=== PATIENT | female | born 1955 | race Caucasian/White ===

== ENCOUNTER → 2017-03-07 | Outpatient (CLI) | payer BC ==
--- NOTE | 2017-03-08 09:35 | MM ---
Reason for exam: screening (asymptomatic). Last mammogram was performed 1 year and 7 months ago. History: Patient is postmenopausal. Took hormonal contraceptives for 2 years. Physical Findings: A clinical breast exam by your physician is recommended on an annual basis and results should be correlated with mammographic findings. MG Screening Mammo w CAD Bilateral CC and MLO view(s) were taken. Prior study comparison: August 20, 2015, bilateral MG screening mammo w CAD. June 27, 2013, bilateral digital screening mammo w/CAD. The breast tissue is heterogeneously dense. This may lower the sensitivity of mammography. Finding: There are typically benign dystrophic, round calcifications in both breasts. Asymmetric breast tissue in the right posterior upper outer quadrant is stable. There is no discrete abnormality. ASSESSMENT: Benign, BI-RAD 2 RECOMMENDATION: Routine screening mammogram of both breasts in 1 year.
== END | disposition home or self-care (01) ==
LOC: RADMAMWWP 07:52
PROVIDERS: ATTEND Family Medicine
DX: Z12.31 Encounter for screening mammogram for malignant neoplasm of breast (principal)

== ENCOUNTER → 2018-03-08 | Outpatient (CLI) | payer BC ==
--- NOTE | 2018-03-08 14:06 | MM ---
Reason for exam: screening (asymptomatic). Last mammogram was performed 1 year ago. History: Patient is postmenopausal. Took hormonal contraceptives for 2 years. Physical Findings: A clinical breast exam by your physician is recommended on an annual basis and results should be correlated with mammographic findings. MG Screening Mammo w CAD Bilateral CC and MLO view(s) were taken. Prior study comparison: March 07, 2017, bilateral MG screening mammo w CAD. August 20, 2015, bilateral MG screening mammo w CAD. The breast tissue is heterogeneously dense. This may lower the sensitivity of mammography. There is benign appearing round calcifications bilaterally. There is no discrete abnormality. ASSESSMENT: Benign, BI-RAD 2 RECOMMENDATION: Routine screening mammogram of both breasts in 1 year.
== END | disposition home or self-care (01) ==
LOC: RADMAMWWP 08:44
PROVIDERS: ATTEND Family Medicine
DX: Z12.31 Encounter for screening mammogram for malignant neoplasm of breast (principal)
CPT/HCPCS: 77067

== ENCOUNTER → 2019-03-12 | Outpatient (CLI) | payer MEDICARE ==
--- NOTE | 2019-03-12 13:26 | BD ---
EXAMINATION TYPE: Axial Bone Density DATE OF EXAM: 03/12/2019 COMPARISON: 2012 CLINICAL HISTORY: Height: 62.5 Weight: 122.5 FRAX RISK QUESTIONS: Alcohol (3 or more units per day): no Family History (Parent hip fracture): no Glucocorticoids (More than 3mos): no (Ex: prednisone, prednisolone, methylprednisolone, dexamethasone, and hydrocortisone). History of Fracture in Adulthood: no Secondary Osteoporosis: 1. Type 1 Diabetes: no 2. Hyperthyroidism: no 3. Menopause before 45: no 4. Malnutrition: no 5. Chronic liver disease: no Rheumatoid Arthritis: no Current Tobacco Use: yes RISK FACTORS HISTORY OF: Family History of Osteoporosis: not to knowledge of patient Active: yes Diet low in dairy products/other sources of calcium: at least one serving a day Postmenopausal woman: yes Take estrogen and/or progesterone medications: not now How long: hormonal contraceptives about 2 years Lost more than 2 inches in height since high school: no Frequent falls: no Poor Health: no Hyperparathyroidism: no Adrenal Insufficiency: no MEDICATIONS: Thyroid Medications: no Osteoporosis Medications: no Additional Medications: multivitamin, blood pressure med Additional History: EXAM MEASUREMENTS: Bone mineral densitometry was performed using the [employer] System. Bone mineral density as measured about the Lumbar spine is: ----- L1-L4(G/cm2): 1.329 T Score Values are as follows: ----- L2: 1.5 ----- L3: 0.6 ----- L4: 2.2 ----- L1-L4: 1.2 Bone mineral density has: Decreased -6.2% since study of: 06/27/2013 Bone mineral density about the R hip (g/cm2): 0.862 Bone mineral density about the L hip (g/cm2): 0.908 T Score values are as follows: -----R Neck: -1.3 -----L Neck: -0.9 -----R Total: -1.2 -----L Total: -0.9 Bone mineral density has: Decreased -6.9% since study of: 06/27/2013 IMPRESSION: Osteopenia right hip. NOTE: T-SCORE=SD OF THE YOUNG ADULT MEAN.
--- NOTE | 2019-03-13 08:08 | MM ---
Reason for exam: screening (asymptomatic). Last mammogram was performed 1 year ago. History: Patient is postmenopausal. Took hormonal contraceptives for 2 years. Physical Findings: A clinical breast exam by your physician is recommended on an annual basis and results should be correlated with mammographic findings. MG 3D Screening Mammo W/Cad Bilateral CC and MLO view(s) were taken. Prior study comparison: March 08, 2018, bilateral MG screening mammo w CAD. March 07, 2017, bilateral MG screening mammo w CAD. The breast tissue is heterogeneously dense. This may lower the sensitivity of mammography. There is no discrete abnormality. No significant changes when compared with prior studies. ASSESSMENT: Benign, BI-RAD 2 RECOMMENDATION: Routine screening mammogram of both breasts in 1 year.
== END | disposition home or self-care (01) ==
LOC: RADMAMWWP 08:47
PROVIDERS: ATTEND Family Medicine
DX: Z12.31 Encounter for screening mammogram for malignant neoplasm of breast (principal); M85.851 Other specified disorders of bone density and structure, right thigh; Z78.0 Asymptomatic menopausal state
CPT/HCPCS: 77063; 77067; 77080

== ENCOUNTER → 2019-12-13 | Outpatient (CLI) | payer MEDICARE ==
[~2019-12-13] MED LIST: SODIUM CHLORIDE 0.9% 500 ML 500 ML in EMPTY BAG 1 BAG IV PRN
[2019-12-13 10:54] VITALS: BP 155/82; PULSE 81; RESP 16; TEMP 97.6
[2019-12-13 11:18] LABS: Basophils # (A) 0.1 k/uL (0-0.2); Basophils % (A) 1 %; Eosinophils # (A) 0.2 k/uL (0-0.7); Eosinophils % (A) 2 %; Hypochromasia Slight; Lymphocytes # (A) 1.1 k/uL (1.0-4.8); Lymphocytes % (A) 10 %; MCH 28.5 pg (25.0-35.0); MCHC 31.1 g/dL (31.0-37.0); Monocytes # (A) 0.3 k/uL (0-1.0); Monocytes % (A) 3 %; Neutrophils # (A) 9.5 k/uL (1.3-7.7); Neutrophils % (A) 84 %; RDW 14.4 % (11.5-15.5); WBC 11.3 k/uL (3.8-10.6)
[2019-12-13 11:27] LABS: ALT 14 U/L (4-34); AST 29 U/L (14-36); African American GFR (CKD) >90 (>60 ml/min/1.73 sqM); Alkaline Phosphatase 155 U/L (38-126); Anion Gap 10 mmol/L; Blood Urea Nitrogen 3 mg/dL (7-17); Calcium 8.4 mg/dL (8.4-10.2); Carbon Dioxide 26 mmol/L (22-30); Chloride 99 mmol/L (98-107); Glucose 156 mg/dL (74-99); MCV 91.6 fL (80.0-100.0); Magnesium 1.6 mg/dL (1.6-2.3); Non-African American GFR(CKD) >90 (>60 ml/min/1.73 sqM); Platelet Count 518 k/uL (150-450); Potassium 3.8 mmol/L (3.5-5.1); Sodium 135 mmol/L (137-145); Total Bilirubin 0.3 mg/dL (0.2-1.3); Total Protein 5.7 g/dL (6.3-8.2)
== END | disposition home or self-care (01) ==
LOC: PROCWHC3 10:32
DX: C25.9 Malignant neoplasm of pancreas, unspecified (principal)
CPT/HCPCS: 80053; 83735; 85025; 36591; J1642

== ENCOUNTER → 2020-03-22 | Outpatient (CLI) | payer MEDICARE ==
--- NOTE | 2020-03-24 06:31 | PE ---
EXAMINATION TYPE: PET CT fusion skull to thigh DATE OF EXAM: 03/22/2020 COMPARISON: Outside CT abdomen and pelvis September 24, 2019. HISTORY: Pancreatic cancer progress study. Originally diagnosed in September, completed chemotherapy treatment January 14, 2020. TECHNIQUE: Following the intravenous administration of 10.16 mCi of F-18 FDG, whole body images are performed from the skull base to the midthigh. Images are reviewed on the computer in the coronal, a xial, and sagittal planes. Reconstructed rotating images are created on independent workstation and reviewed on the computer. A noncontrast CT is performed in conjunction with the PET scan. SCAN: Subsequent Scan FINDINGS: SKULL BASE AND NECK: No areas of abnormal hypermetabolic uptake. CHEST, MEDIASTINUM, AND HILAR REGION: Background mild underlying emphysematous change. No areas of ab normal hypermetabolic uptake. ABDOMEN AND PELVIS: Interval placement of metallic internal biliary stent with new pneumobilia. Inter marian improvement in degree of biliary and pancreatic ductal dilatation. Persistent abnormal soft tissu e medially or deep to the stent with hypermetabolic uptake near axial image 141 through 147, difficul t to accurately measure due to isointensity relative to adjacent pancreatic tissue, likely measuring 2 to 2.5 cm in both AP and transverse dimensions. Max SUV is at this level is 3.71 on axial image 146 . Normal excretion is present. No additional areas of suspicious hypermetabolic uptake. OSSEOUS STRUCTURES: No areas of suspicious hypermetabolic uptake. OTHER CT: There is right internal jugular Mediport catheter terminating near the cavoatrial junction. Mild to moderate right greater than left carotid bulb vascular calcification. Ascending aortic aneurysm up to 4.0 cm axial image 85. Coronary artery calcification is present. There is 2.6 cm simple appearing thin-walled cyst medially left kidney assessment 140 incidentally no claire. There is ventral wall hernia containing fat and fluid above the umbilicus axial image 148. There is small fat-containing periumbilical hernia axial image 161. Sigmoid colonic diverticulosis. Scatte red pelvic phleboliths. IMPRESSION: Persistent active neoplasm at level of head/uncinate process. No new metastatic disease i s evident. New Metallic internal biliary stent is patent with improved ductal distention.
== END | disposition home or self-care (01) ==
LOC: RADPETMAIN 08:09
PROVIDERS: ATTEND Internal Medicine Hematology & Oncology
DX: C25.8 Malignant neoplasm of overlapping sites of pancreas (principal)
CPT/HCPCS: 78815; A9552

== ENCOUNTER → 2020-06-04 | Outpatient (CLI) | payer MEDICARE ==
[2020-06-04 11:59] LABS: African American GFR (CKD) >90 (>60 ml/min/1.73 sqM); Blood Urea Nitrogen 15 mg/dL (7-17); Non-African American GFR(CKD) >90 (>60 ml/min/1.73 sqM)
--- NOTE | 2020-06-04 13:06 | CT ---
EXAMINATION TYPE: CT ChestAbdPelvis w con DATE OF EXAM: 06/04/2020 COMPARISON: Prior PET/CT March 22, [address] abdomen and pelvis study September 24, 2019 HISTORY: Pancreatic cancer originally diagnosed September 25, 2019 completed chemotherapy treatment Ju 2019. CT DLP: 949 mGycm. Automated Exposure Control for Dose Reduction was Utilized. CONTRAST: CT scan of the thorax, abdomen and pelvis is performed with oral water and with IV Contrast, patient injected with 100 ml mL of Isovue 370. FINDINGS: LUNGS: Background mild to moderate underlying emphysematous change. Focal mild/moderate medial right mid to lower lung linear scarring and/or atelectasis with mild bibasilar linear scarring and/or atele ctasis. No concerning nodules or masses. No suspicious focal consolidation. No pleural effusion or pn eumothorax seen bilaterally. MEDIASTINUM: There are no new greater than 1 cm hilar or mediastinal lymph nodes. Stable prominent bu t subcentimeter pericarinal lymph node on image 21 No cardiomegaly or pericardial effusion is seen. Some ectasia of the ascending aorta up to 3.6 cm in diameter axial image 26 is redemonstrated. OTHER: Right internal jugular Mediport catheter terminating in SVC is redemonstrated. LIVER/GB: Persistent pneumobilia with patent metallic internal biliary stent. PANCREAS: More prominent diffuse pancreatic ductal dilatation with abrupt termination in the pancreat ic head axial image 66 series 3 due to likely enlarging mass or neoplasm along the anterior left mike in of the metallic stent measuring roughly 3.3 x 3.0 cm on axial image 68 though difficult to distinc tly measure mass versus normal pancreatic tissue, is almost certainly larger from recent PET/CT area of mild hypermetabolic uptake. Craniocaudal dimension of 3.5 cm noted coronal image 81. SPLEEN: No significant abnormality is seen. ADRENALS: No significant abnormality is seen. KIDNEYS: Incidental Simple appearing 3.0 cm thin-walled cyst medially midpole of the left kidney axia l image 67 series 3. Mildly distended bladder. Anteverted uterus. Partially duplicated right-sided co llecting system redemonstrated. BOWEL: Few scattered sigmoid colonic diverticula. GENITAL ORGANS: No gross abnormality seen. LYMPH NODES: No greater than 1cm abdominal or pelvic lymph nodes are appreciated. OSSEOUS STRUCTURES: Sacralized L5 segment. Slight grade 1 retrolisthesis L4 on L5. Mild to moderate d isc space narrowing right L4-L5 level. OTHER: Persistent ventral wall hernia containing fat and tiny mesenteric vessels near the umbilicus. IMPRESSION: Interval progression in size of pancreatic head mass or neoplasm from PET/CT with new green creatic ductal dilatation. Internal metallic biliary stent remains patent without new biliary ductal dilatation. No definitive new metastatic disease.
== END | disposition home or self-care (01) ==
LOC: RADCTMAIN 10:51
PROVIDERS: ATTEND Internal Medicine Hematology & Oncology
DX: K86.89 Other specified diseases of pancreas (principal); Z96.89 Presence of other specified functional implants; C25.9 Malignant neoplasm of pancreas, unspecified
CPT/HCPCS: 82565; 84520; 71260; 74177; 36415; Q9967

== ENCOUNTER → 2020-10-23 | Outpatient (CLI) | payer MEDICARE ==
--- NOTE | 2020-10-24 09:47 | ECHOF ---
Referral Reason:Z01.818 MEASUREMENTS -------- HEIGHT: 157.5 cm WEIGHT: 47.6 kg BP: IVSd: 1.2 cm (0.6 - 1.1) LVIDd: 3.8 cm (3.9 - 5.3) LVPWd: 1.2 cm (0.6 - 1.1) IVSs: 1.3 cm LVIDs: 2.5 cm LVPWs: 1.5 cm LAESV Index (A-L): 18.72 ml/m Ao Diam: 3.2 cm (2.0 - 3.7) AV Cusp: 1.9 cm (1.5 - 2.6) LA Diam: 2.3 cm (2.7 - 3.8) MV EXCURSION: 11.800 mm (> 18.000) MV EF SLOPE: 66 mm/s (70 - 150) EPSS: 1.6 cm MV E Nehemias: 0.44 m/s MV DecT: 206 ms MV A Nehemias: 0.69 m/s MV E/A Ratio: 0.64 RAP: 5.00 mmHg RVSP: 13.29 mmHg FINDINGS -------- This was a technically good study. The left ventricular size is normal. There is borderline concentric left ventricular hypertrophy. Overall left ventricular systolic function is low-normal with, an EF between 50 - 55 %. The diasto lic filling pattern is normal for the age of the patient 6.77. The right ventricle is normal in size. The left atrial size is normal. Normal LA size by volume 22+/-6 ml/m2. The right atrial size is normal. Interatrial and interventricular septum intact. The aortic valve is trileaflet and appears structurally normal. The mitral valve is normal. The mitral valve leaflets are mildly thickened. There is trace mitral regurgitation. The tricuspid valve appears structurally normal. Trace tricuspid regurgitation present. Right mulu tricular systolic pressure is normal at < 35 mmHg. There is no pulmonic regurgitation present. The aortic root size is normal. Normal inferior vena cava with normal inspiratory collapse consistent with estimated right atrial pre ssure of 5 mmHg. There is no pericardial effusion. CONCLUSIONS -------- 1. The left ventricular size is normal. 2. There is borderline concentric left ventricular hypertrophy. 3. Overall left ventricular systolic function is low-normal with, an EF between 50 - 55 %. 4. The diastolic filling pattern is normal for the age of the patient 6.77 5. The mitral valve leaflets are mildly thickened. 6. There is trace mitral regurgitation. 7. Trace tricuspid regurgitation present. 8. There is no pericardial effusion. WINE MASTER: Marcy Collado RDCS
== END | disposition home or self-care (01) ==
LOC: RADECHMAIN 12:03
PROVIDERS: ATTEND Internal Medicine Hematology & Oncology
DX: Z01.818 Encounter for other preprocedural examination (principal); I08.1 Rheumatic disorders of both mitral and tricuspid valves
CPT/HCPCS: 93306

== ENCOUNTER → 2021-02-05 | Outpatient (CLI) | payer MEDICARE ==
[~2021-02-05] MED LIST changes: +CALCIUM GLUCONATE 1 GM in SODIUM CHLORIDE 0.9% 100 ML IVPB ONE; +MAGNESIUM SULFATE-D5W PMX 1 GM in DEXTROSE/WATER 1 100ML.BAG IVPB NR
[2021-02-05 12:34] VITALS: BP 147/91; PULSE 72; RESP 16; TEMP 97.9
[2021-02-05 12:49] LABS: Basophils % (A) 0 %; Eosinophils % (A) 0 %; HCT 28.2 % (34.0-46.0); Lymphocytes # (A) 0.5 k/uL (1.0-4.8); Lymphocytes % (A) 10 %; MCH 31.7 pg (25.0-35.0); MCHC 35.2 g/dL (31.0-37.0); Mean Platelet Volume 6.9; Monocytes # (A) 0.3 k/uL (0-1.0); Monocytes % (A) 6 %; Neutrophils # (A) 4.3 k/uL (1.3-7.7); Neutrophils % (A) 83 %; Platelet Count 153 k/uL (150-450); RBC 3.14 m/uL (3.80-5.40); RDW 15.1 % (11.5-15.5); WBC 5.2 k/uL (3.8-10.6)
== END ==
LOC: PROCWHC3 12:11
PROVIDERS: ATTEND Internal Medicine Hematology & Oncology
DX: D64.81 Anemia due to antineoplastic chemotherapy (principal); E83.51 Hypocalcemia
CPT/HCPCS: 83735; 85025; 96365; 96366; 96367; 36591; J3475; J1642; J0610

== ENCOUNTER → 2021-04-20 | Outpatient (CLI) | payer MEDICARE ==
[~2021-04-20] MED LIST changes: -CALCIUM GLUCONATE 1 GM in SODIUM CHLORIDE 0.9% 100 ML IVPB ONE; -MAGNESIUM SULFATE-D5W PMX 1 GM in DEXTROSE/WATER 1 100ML.BAG IVPB NR
[2021-04-20 14:43] VITALS: BP 159/83; PULSE 77; RESP 16; TEMP 98.2
[2021-04-20] MEDS: MAGNESIUM SULFATE-D5W PMX 1 GM in DEXTROSE/WATER 1 100ML.BAG IVPB SCH ×2 (14:43→16:05)
== END ==
LOC: PROCWHC3 14:13
PROVIDERS: ATTEND Internal Medicine Hematology & Oncology
DX: E83.42 Hypomagnesemia (principal)
CPT/HCPCS: 96366; 96365; J3475; J1642

== ENCOUNTER → 2021-05-01 | Outpatient (CLI) | payer MEDICARE ==
[2021-05-01 09:44] VITALS: RESP 16
[2021-05-01 13:37] VITALS: BP 137/71; PULSE 77; TEMP 98.2
== END ==
LOC: PROCWHC3 09:29
PROVIDERS: ATTEND Internal Medicine Hematology & Oncology
DX: D64.81 Anemia due to antineoplastic chemotherapy (principal); T45.1X5A Adverse effect of antineoplastic and immunosuppressive drugs, initial encounter
CPT/HCPCS: 86900; 86901; 86850; 86920; P9016

== ENCOUNTER → 2021-08-03 | Outpatient (CLI) | payer MEDICARE ==
--- NOTE | 2021-08-03 16:21 | US ---
EXAMINATION TYPE: US venous doppler duplex LE LT DATE OF EXAM: 08/03/2021 4:03 PM COMPARISON: NONE CLINICAL HISTORY: 65-year-old female M79.662,R22.42 PAIN AND SWELLING IN LT LOWER LIMB. Patient state s having left lower extremity swelling at the ankle. SIDE PERFORMED: Left TECHNIQUE: The lower extremity deep venous system is examined utilizing real time linear array sonog alicia with graded compression, doppler sonography and color-flow sonography. FINDINGS: VESSELS IMAGED: Common Femoral Vein Deep Femoral Vein Greater Saphenous Vein * Femoral Vein Popliteal Vein Small Saphenous Vein * Proximal Calf Veins (* superficial vessels) Left Leg: There appears to be superficial thrombus formation in the greater saphenous vein. IMPRESSION: 1. No evidence for DVT within the left lower extremity imaged from the groin to the upper calf. 2. However, the exam is positive for SVT involving the greater saphenous vein.
== END | disposition home or self-care (01) ==
LOC: RADUSWWP 15:13
PROVIDERS: ATTEND Internal Medicine Hematology & Oncology
DX: I82.812 Embolism and thrombosis of superficial veins of left lower extremity (principal)

== ENCOUNTER → 2021-09-01 | Outpatient (CLI) | payer MEDICARE ==
--- NOTE | 2021-09-01 13:49 | US ---
EXAMINATION TYPE: US venous doppler duplex LE LT DATE OF EXAM: 09/01/2021 1:11 PM COMPARISON: US August 03, 2021 CLINICAL HISTORY: R22.42 Swelling of left lower limb. Pt states swelling left leg, has known GSV thro mbus, pt currently on blood thinners SIDE PERFORMED: Left TECHNIQUE: The lower extremity deep venous system is examined utilizing real time linear array sonog alicia with graded compression, doppler sonography and color-flow sonography. VESSELS IMAGED: Common Femoral Vein Deep Femoral Vein Greater Saphenous Vein * Femoral Vein Popliteal Vein Small Saphenous Vein * Proximal Calf Veins (* superficial vessels) Left Leg: Negative for DVT, thrombus within left GSV near CFV junction, similar in appearance to pre vious exam Grayscale, color doppler, spectral doppler imaging performed of the deep veins of the left lower extr emity. IMPRESSION: Persistent occlusive thrombus in the greater saphenous vein extending near junction of t he common femoral vein, no significant change from prior study.
== END | disposition home or self-care (01) ==
LOC: RADUSWWP 12:35
PROVIDERS: ATTEND Internal Medicine Hematology & Oncology
DX: I82.812 Embolism and thrombosis of superficial veins of left lower extremity (principal)

== ENCOUNTER → 2021-09-01 | Outpatient (CLI) | payer MEDICARE ==
[2021-09-01 18:40] LABS: African American GFR (CKD) 40.4 (60.0-200.0); Albumin 3.6 g/dL (3.8-4.9); Albumin/Globulin Ratio 1.98 (1.60-3.17); Anion Gap 10.5 mmol/L (10.00-18.00); BUN/Creat Ratio 13.27 Ratio (12.00-20.00); Blood Urea Nitrogen 20.3 mg/dL (9.0-27.0); Calcium 8.6 mg/dL (8.7-10.3); Carbon Dioxide 22.5 mmol/L (20.0-27.5); Globulin 1.8 g/dL (1.6-3.3); Magnesium 1.6 mg/dL (1.5-2.4); Non-African American GFR(CKD) 34.8 (60.0-200.0); Potassium 4.1 mmol/L (3.5-5.5); Total Bilirubin 0.4 mg/dL (0.30-1.20); Total Protein 5.3 g/dL (6.2-8.2)
== END | disposition home or self-care (01) ==
LOC: LABWHC1 12:39
PROVIDERS: ATTEND Internal Medicine
DX: N17.9 Acute kidney failure, unspecified (principal)
CPT/HCPCS: 36415; 80053; 83735

== ENCOUNTER 2021-09-04 12:51 | Day surgery (SDC) | payer MEDICARE ==
[2021-09-01 10:50] VITALS: BMI 15.3
[~2021-09-04 12:51] MED LIST changes: +LACTATED RINGERS 1,000 ML IV SCH; -SODIUM CHLORIDE 0.9% 500 ML 500 ML in EMPTY BAG 1 BAG IV PRN
[2021-09-04 13:44] VITALS: RESP 16; TEMP 98.9
[2021-09-04] MEDS ORDERED: LIDOCAINE 1% INJ 10MG/ML (20 ML MDV) ONE (13:48)
[2021-09-04] MEDS ORDERED: PROPOFOL 10 MG/ML 20 ML VIAL IV ONE (13:48)
--- NOTE | 2021-09-04 14:17 | P.PCN ---
Date of Procedure: 09/04/21 Procedure(s) Performed: Brief history: Patient is a pleasant 65-year-old white female scheduled for an elective upper endoscopy as well as colonoscopy as a part of evaluation of in deficiency anemia. Patient was diagnosed with pancreatic adenocarcinoma 2 years ago status post chemotherapy followed by Whipple surgery. Since has been undergoing chemotherapy the last one was 2 months ago. She has been having severe anemia requiring 8 units of PRBC transfusion the last 3 months. She denies any rectal bleeding or melena. However she does complain of intermittent dark colored stools. She has been on a Eliquis for history of DVT. This has been on hold for the last 2 days. Procedure performed: Esophagogastroduodenoscopy with biopsy Colonoscopy Preoperative diagnosis: Iron deficiency anemia Anesthesia: MAC Procedure: After informed consent was obtained from the patient was brought into the endoscopy unit and IV sedation was administered by anesthesia under continuous monitoring. Initially upper endoscopy was done. The Olympus GF 160 video endoscope was inserted inserted into the mouth and esophagus intubated without any difficulty and was gradually advanced into the stomach . There was evidence of distal antrectomy with Trinh-en-Y anastomosis. The was advanced through the afferent and efferent loops. It was advanced at least to 60 cm into the efferent loop and the mucosa appeared normal. Biopsies were done from the jejunum to rule out celiac disease. normal. l. The scope was then withdrawn into the stomach adequately insufflated with air and upon careful examination the body, cardia and fundus appeared normal. The scope was then withdrawn into the esophagus. The GE junction was located at 40 cm to the incisors. It appeared regular with no erythema erosions or ulcerations. Rest of the esophagus appeared normal. Patient tolerated the procedure well. At this time the patient continued to remain sedation. Initial digital rectal examination was normal. Olympus CF 160 video colonoscope was then inserted into the rectum and gradually advanced to the cecum with difficulty due to severe difficulty. Careful examination was performed as the scope was gradually being withdrawn. The prep was excellent. The cecum, ascending colon, transverse colon, descending colon, sigmoid colon and rectum appeared normal. Moderate sigmoid diverticulosis seen. Retroflexion was performed in the rectum and no lesions were noted. Patient tolerated the procedure well. Impression: 1. Upper endoscopy revealed evidence of distal antrectomy/Whipple surgery. No evidence of peptic ulcer disease or angiectasia 2. Colonoscopy revealed moderate sigmoid diverticulosis and small internal hemorrhoids but no evidence of angiectasia, colitis or colorectal neoplasia Recommendations: Findings of this examination were discussed with the patient as well as[ her family. She was advised to follow with the biopsy results. Resume liquids today. Follow up in office in a month.
[2021-09-04 14:49] VITALS: BP 147/71; PULSE 77
== END 2021-09-04 15:29 | disposition home or self-care (01) ==
LOC: ORWHC2ENDO 12:51
PROVIDERS: ATTEND Internal Medicine Gastroenterology
DX: D50.9 Iron deficiency anemia, unspecified (principal)
CPT/HCPCS: 45378; 43239; J2001; J2704; 88305

== ENCOUNTER → 2021-09-17 | Outpatient (CLI) | payer MEDICARE ==
--- NOTE | 2021-09-17 13:55 | US ---
EXAMINATION TYPE: US venous doppler duplex LE LT DATE OF EXAM: 09/17/2021 12:46 PM COMPARISON: 09/01/2021 CLINICAL HISTORY: 65-year-old female I82.812 Embolism and thrombosis of superficial vein. Follow-up, history of GSV thrombus. Patient on blood thinner SIDE PERFORMED: left TECHNIQUE: The lower extremity deep venous system is examined utilizing real time linear array sonog alicia with graded compression, doppler sonography and color-flow sonography. FINDINGS: VESSELS IMAGED: Common Femoral Vein Deep Femoral Vein Greater Saphenous Vein * Femoral Vein Popliteal Vein Small Saphenous Vein * Proximal Calf Veins (* superficial vessels) Left Leg: No evidence of DVT. Thrombus within left GSV near CFV junction as on prior exam IMPRESSION: 1. Exam positive for thrombus within the greater saphenous vein that extends to the junction with the common femoral vein as seen previously. 2. Otherwise, no evidence for DVT within the left lower extremity imaged from the groin to the upper calf.
== END | disposition home or self-care (01) ==
LOC: RADUSWWP 12:17
PROVIDERS: ATTEND Internal Medicine Hematology & Oncology
DX: I82.812 Embolism and thrombosis of superficial veins of left lower extremity (principal)

== ENCOUNTER → 2021-09-17 | Outpatient (CLI) | payer MEDICARE ==
[2021-09-18 22:51] LABS: Gliadin AB IgA, Deaminated NEGATIVE (NEGATIVE); Gliadin AB IgA, Unit 1.8 U/mL; Gliadin AB IgG, Deaminated NEGATIVE (NEGATIVE); Gliadin AB IgG, Unit <0.4 U/mL; Tis Transglutaminase IgA Unit <0.5 AI; Tis Transglutaminase IgG Unit 0.9 U/mL; Tissue Transglutaminase IgA NEGATIVE (NEGATIVE); Tissue Transglutaminase IgG NEGATIVE (NEGATIVE)
== END | disposition home or self-care (01) ==
LOC: LABWHC1 12:57
PROVIDERS: ATTEND Nurse Practitioner Family
DX: K90.0 Celiac disease (principal)
CPT/HCPCS: 36415; 83516

== ENCOUNTER → 2021-10-29 | Outpatient (CLI) | payer MEDICARE ==
[2021-10-29 18:01] LABS: Basophils # (A) 0.04 X 10*3/uL (0.00-0.10); Basophils % (A) 0.7 %; Eosinophils # (A) 0.14 X 10*3/uL (0.04-0.35); Eosinophils % (A) 2.6 %; HCT 28.3 % (37.2-46.3); HGB 8.6 g/dL (12.0-15.0); Immature Grans, Automated 0.6 %; Lymphocytes # (A) 0.97 X 10*3/uL (0.90-5.00); MCH 31.3 pg (27.0-32.0); MCHC 30.4 g/dL (32.0-37.0); MCV 102.9 fL (80.0-97.0); Mean Platelet Volume 8.8 fL (9.5-12.2); Monocytes # (A) 0.31 X 10*3/uL (0.20-1.00); Monocytes % (A) 5.7 %; NRBC Per 100 WBC 0 /100 WBCS (0.0-0.0); Neutrophils # (A) 3.91 X 10*3/uL (1.80-7.70); Neutrophils % (A) 72.4 %; Platelet Count 477 X 10*3/uL (140-440); RBC 2.75 X 10*6/uL (4.10-5.20); RDW 12.6 % (11.5-14.5)
[2021-10-29 18:18] LABS: % Iron Saturation 33.36 (12.00-45.00); African American GFR (CKD) 44.9 (60.0-200.0); Albumin/Globulin Ratio 2.11 (1.60-3.17); Anion Gap 12.6 mmol/L (10.00-18.00); BUN/Creat Ratio 24.86 Ratio (12.00-20.00); Blood Urea Nitrogen 34.8 mg/dL (9.0-27.0); Calcium 8.8 mg/dL (8.7-10.3); Carbon Dioxide 20.4 mmol/L (20.0-27.5); Globulin 1.9 g/dL (1.6-3.3); Magnesium 1.8 mg/dL (1.5-2.4); Non-African American GFR(CKD) 38.8 (60.0-200.0); Phosphorus 4.6 mg/dL (2.4-5.1); Potassium 4.3 mmol/L (3.5-5.5); Total Bilirubin 0.3 mg/dL (0.30-1.20); Total Protein 5.9 g/dL (6.2-8.2); Uric Acid 6.3 mg/dL (2.9-7.7)
[2021-10-29 22:11] LABS: Appearance,Urine Clear (Clear); Bacteria,Urine None Seen /HPF (None Seen); Bilirubin,Urine Negative (Negative); Blood,Urine Negative (Negative); Calcium Oxalate Crystals,Urine Present /LPF (None Seen); Color,Urine Yellow (Yellow); Ketones,Urine Negative (Negative); Nitrite,Urine Negative (Negative); Specific Gravity,Urine 1.017 (1.001-1.030); Urobilinogen,Urine 0.2 (0.2,1.0)
== END | disposition home or self-care (01) ==
LOC: LABWHC1 13:21
PROVIDERS: ATTEND Internal Medicine
DX: E21.3 Hyperparathyroidism, unspecified (principal); D64.9 Anemia, unspecified; N17.9 Acute kidney failure, unspecified; N39.0 Urinary tract infection, site not specified
CPT/HCPCS: 36415; 80053; 81001; 82306; 82728; 83540; 83550; 83735; 83970; 84100; 84550; 85025

== ENCOUNTER → 2021-11-25 | Outpatient (CLI) | payer MEDICARE ==
--- NOTE | 2021-11-25 16:08 | US ---
EXAMINATION TYPE: US venous doppler duplex LE LT DATE OF EXAM: 11/25/2021 3:28 PM COMPARISON: Prior left leg venous ultrasound September 17, 2021 CLINICAL HISTORY: I82.812 EMBOLISM AND THROMBOSIS L LEG. SIDE PERFORMED: Left TECHNIQUE: The lower extremity deep venous system is examined utilizing real time linear array sonog alicia with graded compression, doppler sonography and color-flow sonography. VESSELS IMAGED: Common Femoral Vein Deep Femoral Vein Greater Saphenous Vein * Femoral Vein Popliteal Vein Small Saphenous Vein * Proximal Calf Veins (* superficial vessels) Left Leg: Negative for DVT Superficial thrombus seen just inferior to the CFV/GSV junction. Grayscale, color doppler, spectral doppler imaging performed of the deep veins of the left lower extr emity. IMPRESSION: Some improvement or recanalization of the maximal greater saphenous vein but with persist ent thrombus within 2.0 cm of the junction with the left common femoral vein.
== END | disposition home or self-care (01) ==
LOC: RADUSWWP 14:56
PROVIDERS: ATTEND Internal Medicine Hematology & Oncology
DX: I82.812 Embolism and thrombosis of superficial veins of left lower extremity (principal)

== ENCOUNTER → 2021-11-25 | Outpatient (CLI) | payer MEDICARE ==
--- NOTE | 2021-11-25 16:20 | US ---
EXAMINATION TYPE: US kidneys/renal and bladder DATE OF EXAM: 11/25/2021 COMPARISON: CT chest abdomen and pelvis June 04, 2020 CLINICAL HISTORY: N18.32 ckd. EXAM MEASUREMENTS: Right Kidney: 9.1 x 3.9 x 4.6 cm Left Kidney: 9.8 x 5.4 x 5.1 cm Right Kidney: shadowing echogenic foci measuring 0.6 x 0.4 x 0.4cm, possible stone Left Kidney: 2.8 x 2.7 x 2.5cm midline cyst Bladder: wnl as seen, patient felt her bladder very full There is no evidence for hydronephrosis at this point in time. Technologist connell 5 mm shadowing hype rechoic focus lower pole level right kidney possible nonobstructing calculus not clearly seen on prio r CT. There is simple appearing 2.8 cm thin-walled cyst centrally midpole of the left kidney correlat ing with coronal image 117 series 9. The urinary bladder is adequately distended. Bilateral uretera l jets are and not seen. IMPRESSION: No hydronephrosis is noted bilaterally.
== END | disposition home or self-care (01) ==
LOC: RADUSWWP 14:53
PROVIDERS: ATTEND Internal Medicine
DX: N18.32 Chronic kidney disease, stage 3b (principal)
CPT/HCPCS: 76770

== ENCOUNTER → 2022-01-26 | Outpatient (CLI) | payer MEDICARE ==
[2022-01-26 18:04] LABS: HCT 27.3 % (37.2-46.3); HGB 8.3 g/dL (12.0-15.0); MCH 30.7 pg (27.0-32.0); MCHC 30.4 g/dL (32.0-37.0); MCV 101.1 fL (80.0-97.0); Mean Platelet Volume 8.8 fL (9.5-12.2); NRBC Per 100 WBC 0 /100 WBCS (0.0-0.0); Platelet Count 262 X 10*3/uL (140-440); RDW 13.4 % (11.5-14.5); WBC 4.79 X 10*3/uL (4.50-10.00)
[2022-01-26 18:18] LABS: % Iron Saturation 45.7 (12.00-45.00); African American GFR (CKD) 24.5 (60.0-200.0); Albumin 3.9 g/dL (3.8-4.9); Albumin/Globulin Ratio 2.05 (1.60-3.17); Anion Gap 12.4 mmol/L (10.00-18.00); BUN/Creat Ratio 14.26 Ratio (12.00-20.00); Blood Urea Nitrogen 32.8 mg/dL (9.0-27.0); Calcium 8.4 mg/dL (8.7-10.3); Carbon Dioxide 19.6 mmol/L (20.0-27.5); Globulin 1.9 g/dL (1.6-3.3); Magnesium 1.7 mg/dL (1.5-2.4); Non-African American GFR(CKD) 21.1 (60.0-200.0); Phosphorus 5.2 mg/dL (2.4-5.1); Potassium 4.5 mmol/L (3.5-5.5); Total Bilirubin 0.3 mg/dL (0.30-1.20); Total Protein 5.8 g/dL (6.2-8.2)
[2022-01-26 20:28] LABS: Appearance,Urine Cloudy (Clear); Bilirubin,Urine Negative (Negative); Blood,Urine Negative (Negative); Color,Urine Yellow (Yellow); Ketones,Urine Trace mg/dL (Negative); Nitrite,Urine Negative (Negative); Specific Gravity,Urine 1.018 (1.001-1.030); Urobilinogen,Urine 0.2 (0.2,1.0)
[2022-01-26 20:41] LABS: Bacteria,Urine None Seen /HPF (None Seen); Calcium Oxalate Crystals,Urine Present /LPF (None Seen); Yeast (UA) Present /LPF (None Seen)
== END | disposition home or self-care (01) ==
LOC: LABWHC1 11:31
PROVIDERS: ATTEND Internal Medicine
DX: N25.81 Secondary hyperparathyroidism of renal origin (principal); D64.9 Anemia, unspecified; N39.0 Urinary tract infection, site not specified; R80.9 Proteinuria, unspecified; N18.32 Chronic kidney disease, stage 3b; E55.9 Vitamin D deficiency, unspecified; M10.9 Gout, unspecified
CPT/HCPCS: 36415; 80053; 81001; 82043; 82306; 82570; 82728; 83540; 83550; 83735; 83970; 84100; 85027

== ENCOUNTER → 2022-02-17 | Outpatient (CLI) | payer MEDICARE ==
[2022-02-17 15:59] LABS: Appearance,Urine Clear (Clear); Bilirubin,Urine Negative (Negative); Blood,Urine Negative (Negative); Color,Urine Yellow (Yellow); Ketones,Urine Negative (Negative); Nitrite,Urine Negative (Negative); PH, Urine 5.5 (5.0-8.0); Specific Gravity,Urine 1.012 (1.001-1.030); Urobilinogen,Urine 0.2 (0.2,1.0)
[2022-02-17 16:06] LABS: Bacteria,Urine None Seen /HPF (None Seen)
[2022-02-17 22:42] LABS: HCT 25.5 % (37.2-46.3); HGB 7.6 g/dL (12.0-15.0); MCH 30.9 pg (27.0-32.0); MCHC 29.8 g/dL (32.0-37.0); MCV 103.7 fL (80.0-97.0); Mean Platelet Volume 9.4 fL (9.5-12.2); NRBC Per 100 WBC 0 /100 WBCS (0.0-0.0); Platelet Count 225 X 10*3/uL (140-440); RBC 2.46 X 10*6/uL (4.10-5.20); RDW 13.8 % (11.5-14.5); WBC 4.46 X 10*3/uL (4.50-10.00)
[2022-02-17 23:13] LABS: ALT 94 U/L (8-44); AST 56 U/L (13-35); African American GFR (CKD) 26.7 (60.0-200.0); Albumin/Globulin Ratio 2.05 (1.60-3.17); Alkaline Phosphatase 137 U/L (41-126); Blood Urea Nitrogen 35.1 mg/dL (9.0-27.0); Calcium 8.9 mg/dL (8.7-10.3); Carbon Dioxide 21.8 mmol/L (20.0-27.5); Chloride 101 mmol/L (96-109); Glucose 94 mg/dL (70-110); Iron 62 ug/dL (50-170); Non-African American GFR(CKD) 23.1 (60.0-200.0); Phosphorus 4.8 mg/dL (2.4-5.1); Potassium 4.6 mmol/L (3.5-5.5); Sodium 137 mmol/L (135-145); Total Iron Binding Capacity 273 ug/dL (228-460); Total Protein 5.9 g/dL (6.2-8.2); Uric Acid 6.7 mg/dL (2.9-7.7)
[2022-02-18 02:42] LABS: Complement C3 96.5 mg/dL (80.0-207.0)
[2022-02-18 03:22] LABS: Chol/HDL Ratio 2.25 Ratio; LDL Cholesterol,Calculated 52.9 mg/dL (0.0-131.0)
[2022-02-18 04:45] LABS: Urine Creatinine 69.8 mg/dL (28.0-217.0)
[2022-02-18 04:51] LABS: Total Protein 24 Hour,Urine 13.6 mg/dL (0.0-165.0)
[2022-02-18 06:11] LABS: Anti-DNA, DS unit <1.0 IU/mL; DNA Double-Stranded NEGATIVE (NEGATIVE)
[2022-02-18 13:50] LABS: Free Kappa Lt Chain Qnt, Serum 6.66 mg/dL (0.33-1.94); Free Lambda Lt Chain Qnt, Seru 3.19 mg/dL (0.57-2.63)
[2022-02-18 14:39] LABS: C-ANCA <1:20 Titer (<1:20)
[2022-02-18 19:33] LABS: Total Volume 24 Hour,Urine 1100 mL
== END | disposition home or self-care (01) ==
LOC: LABWHC1 09:04
PROVIDERS: ATTEND Internal Medicine
DX: Z00.01 Encounter for general adult medical examination with abnormal findings (principal); N25.81 Secondary hyperparathyroidism of renal origin; N18.32 Chronic kidney disease, stage 3b; D64.9 Anemia, unspecified; N39.0 Urinary tract infection, site not specified; R80.9 Proteinuria, unspecified; E55.9 Vitamin D deficiency, unspecified; M10.9 Gout, unspecified
CPT/HCPCS: 36415; 80053; 80061; 81001; 81050; 82043; 82306; 82570; 82728; 83516; 83540; 83550; 83735; 83883; 83970; 84100; 84156; 84550; 85027; 86038; 86160; 86162; 86225; 86255; 86334

== ENCOUNTER → 2022-03-11 | Outpatient (CLI) | payer MEDICARE ==
--- NOTE | 2022-03-11 18:20 | BD ---
EXAMINATION TYPE: Axial Bone Density DATE OF EXAM: 03/11/2022 CLINICAL HISTORY: 66 years year old Female. ICD-10 CODE: M89.9 DISORDER OF BONE Height: 5 FT 2 1/2 N Weight: 100 FRAX RISK QUESTIONS: Alcohol (3 or more units per day): NO Family History (Parent hip fracture): NO Glucocorticoids (More than 3mos): NO (Ex: prednisone, prednisolone, methylprednisolone, dexamethasone, and hydrocortisone). History of Fracture in Adulthood: NO Secondary Osteoporosis: 1. Type 1 Diabetes: NO 2. Hyperthyroidism: NO 3. Menopause before 45: NO 4. Malnutrition: NO 5. Chronic liver disease: NO Rheumatoid Arthritis: NO Current Tobacco Use: FORMER RISK FACTORS HISTORY OF: Surgery to Spine/Hip(right/left)/Wrist (right/left): NO Family History of Osteoporosis: NO Active: YES Diet low in dairy products/other sources of calcium: NO Postmenopausal woman: YES Take estrogen and/or progesterone medications: NO Lost more than 2 inches in height since high school: YES Frequent falls: NO Poor Health: PANCREATIC CANCER Hyperparathyroidism: NO Adrenal Insufficiency: KIDNEY DISEASE SINCE HER LAST CHEMO MEDICATIONS: Additional Medications: METOPROLOL, OMEPRAZOLE, LOTI MAL, CALCIUM, GABAPENTIN, SODIUM BICARB, MAGNESI UM, VIT D, Additional History: PANCREATIC CANCER CHEMO 2020 EXAM MEASUREMENTS: Bone mineral densitometry was performed using the [employer] System. Bone mineral density as measured about the Lumbar spine is: ----- L1-L4(G/cm2): 1.150 T Score Values are as follows: ----- L1: -0.6 ----- L2: 0.4 ----- L3: -0.4 ----- L4: -0.5 ----- L1-L4: -0.3 Bone mineral density has: DECREASED -19.2 % since study of: 2012 Bone mineral density about the R hip (g/cm2): 0.648 Bone mineral density about the L hip (g/cm2): 0.752 T Score values are as follows: -----R Neck: -2.8 -----L Neck: -2.1 -----R Total: -2.9 -----L Total: -2.2 Bone mineral density has: DECREASED -26.7 % since study of: 2013 FRAX%s: The graph provided illustrates a 13.7 % chance for a major osteoporotic fx and a 4.2 % chance for the hips probability for fx in 10 years time. IMPRESSION: Osteoporosis (T Score less than -2.5). There is increased fracture risk and therapy is usually indicated based on age. Re-Screen 1-2 years. NOTE: T-SCORE=SD OF THE YOUNG ADULT MEAN.
--- NOTE | 2022-03-12 15:50 | MM ---
Reason for Exam: Screening (asymptomatic). Last mammogram was performed 3 year(s) and 0 month(s) ago. Patient History: Menarche at age 12. First Full-Term at age 18. Postmenopausal. Hormonal Contraceptives for 2 years until age 23. Risk Values: Shellie 5 year model risk: 1.4%. NCI Lifetime model risk: 4.6%. Prior Study Comparison: 03/07/2017 Bilateral Screening Mammogram, [facility]. 03/08/2018 Bilateral Screening Mammogram, [facility]. 03/12/2019 Bilateral Screening Mammogram, [facility]. Tissue Density: The breast tissue is heterogeneously dense. This may lower the sensitivity of mammography. Findings: Analyzed By CAD. There is a new group of heterogenous calcifications in the upper outer aspect left breast, an interval change from 2019. Additional workup with vein indication views is recommended. Benign calcifications are present bilaterally. Parenchymal pattern is stable. Overall Assessment: Incomplete: need additional imaging evaluation, BI-RAD 0 Management: Diagnostic Mammogram of the left breast. A negative mammogram report should not preclude additional follow up of suspicious palpable abnormalities. Patient should continue monthly self breast exam. A clinical breast exam by your physician is recommended on an annual basis and results should be correlated with mammographic findings. Electronically signed and approved by: Ryan Ibrahim D.O. Radiologis
== END | disposition home or self-care (01) ==
LOC: RADMAMWWP 14:43
PROVIDERS: ATTEND Family Medicine
DX: Z12.31 Encounter for screening mammogram for malignant neoplasm of breast (principal); M81.0 Age-related osteoporosis without current pathological fracture
CPT/HCPCS: 77063; 77067; 77080

== ENCOUNTER → 2022-03-30 | Outpatient (CLI) | payer MEDICARE ==
--- NOTE | 2022-03-30 10:53 | MM ---
Reason for Exam: Additional evaluation requested from abnormal screening. Last screening mammogram was performed less than 1 month ago. Patient History: Menarche at age 12. First Full-Term at age 18. Postmenopausal. Hormonal Contraceptives for 2 years until age 23. Risk Values: Shellie 5 year model risk: 1.4%. NCI Lifetime model risk: 4.6%. Prior Study Comparison: 03/08/2018 Bilateral Screening Mammogram, [facility]. 03/12/2019 Bilateral Screening Mammogram, [facility]. 03/11/2022 Bilateral MG 3D screening mammo w/cad, [facility]. Tissue Density: Left: The breast tissue is heterogeneously dense. This may lower the sensitivity of mammography. Findings: Analyzed By CAD. Group of fine pleomorphic calcifications demonstrated within the left breast upper outer quadrant posterior depth. Additional grouped coarse heterogenous calcifications demonstrated within the medial upper left breast posterior depth. No suspicious mass. Overall Assessment: Suspicious, BI-RAD 4 Management: Stereotactic Core Biopsy of the left breast. A clinical breast exam by your physician is recommended on an annual basis and results should be correlated with mammographic findings. This exam should not preclude additional follow-up of suspicious palpable abnormalities. Results were given to the patient verbally at the time of exam. Electronically signed and approved by: Dawson Santoro D.O.
== END | disposition home or self-care (01) ==
LOC: RADMAMWWP 09:46
PROVIDERS: ATTEND Family Medicine
DX: R92.8 Other abnormal and inconclusive findings on diagnostic imaging of breast (principal); Z78.0 Asymptomatic menopausal state
CPT/HCPCS: 77065; G0279; 77061

== ENCOUNTER → 2022-04-29 | Outpatient (CLI) | payer MEDICARE ==
--- NOTE | 2022-04-29 08:06 | P.GSHP ---
History of Present Illness H&P Date: 04/29/22 Chief Complaint: Mammographic abnormality left breast Raine is a 66-year-old white female seen in consultation for Dr. Hernandez regarding the mammographic abnormality in the left breast. She had a routine screening mammogram performed on after which additional views of the left breast were recommended. These were performed on 03/3022. Microcalcifications of concern were noted in the left breast in the upper outer quadrant. 2 clips were identified as reviewed by Dr. Ibrahim and recommended for stereotactic core biopsy. She does not feel any lumps masses or nodules of concern in either breast. This was a routine screening mammogram. She has not had any prior surgery on her breasts. She has not had any trauma or infection in her breast. The patient was diagnosed with pancreatic cancer in 2020, she had a whipple procedure at [facility], she had chemotherapy. She did not have radiation therapy. She was told she was tumor free. It started in the bile duct. Caffeine: 1 cup coffee/day nicotine: stopped December 2019, used to smoke 1PPD for > 20 years; diagnosed with pancreatic cancer chocolate: weekly BCP: 2 years in her 20's Family History: 13 siblings brother: colon cancer sister: colon cancer brother: bone cancer mother: stomach cancer patient had genetic testing and told (-) Hormonal History: menarche: 13 [id number], breast fed: no, age at first : 18 menopause: 48 hormones: none Surgeries: tubal Whipple Medical History: Last 2 PET scans a spot on L3L4 follows with Dr. Garcia kidney disease SociaL History: nicotine: stopped 2019 alcohol: none drugs: none - Constitutional Constitutional: Denies chills, Denies fever - EENT Eyes: denies blurred vision, denies pain Ears: deny: decreased hearing, tinnitus Ears, nose, mouth and throat: Denies headache, Denies sore throat - Breasts Breasts: bilateral: as per HPI - Cardiovascular Cardiovascular: Denies chest pain, Denies shortness of breath - Respiratory Comment: former smoker - Gastrointestinal Comment: bile duct cancer resected Gastrointestinal: Reports as per HPI - Genitourinary (Female) Genitourinary: Denies dysuria, Denies hematuria - Menstruation Menstruation: Reports postmenopausal - Musculoskeletal Musculoskeletal: Denies myalgias - Integumentary Integumentary: Denies pruritus, Denies rash - Neurological 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 Neurological: Reports numbness, Denies weakness - Psychiatric Psychiatric: Denies anxiety, Denies depression - Endocrine Endocrine: Denies fatigue, Denies weight change - Hematologic/Lymphatic Comment: eliquis from a superficial blood clot in the left groin, stopped on Tuesday - Allergic/Immunologic Allergic/Immunologic: Reports as per HPI Past Medical History Past Medical History: Cancer, GERD/Reflux, Hypertension Additional Past Medical History / Comment(s): PANCREATIC CANCER DIAGNOSED 09/2019, LAST CHEMO May., INFUSA-PORT RIGHT CHEST, DVT LEFT LEG (DIAGNOSED AUG 2021)., HX OF DIVERTICULITIS., HX OF BLOOD TRANSFUSIONS (LAST MAY 2021)., DIARRHEA. History of Any Multi-Drug Resistant Organisms: None Reported Past Surgical History: Tubal Ligation Additional Past Surgical History / Comment(s): vein stripping., biliary duct stent ., INFUSA-PORT RIGHT CHEST.,. WHIPPLE PROCEDURE(October 02, 2020) Past Anesthesia/Blood Transfusion Reactions: No Reported Reaction Past Psychological History: No Psychological Hx Reported Smoking Status: Former smoker Past Alcohol Use History: None Reported Additional Past Alcohol Use History / Comment(s): quit smoking December 2019, hx of 2 ppd. Past Drug Use History: None Reported - Past Family History Brother(s) Family Medical History: Cancer Additional Family Medical History / Comment(s): colon cancer Sister(s) Family Medical History: Cancer Additional Family Medical History / Comment(s): colon cancer Mother Family Medical History: Cancer Additional Family Medical History / Comment(s): stomach cancer Medications and Allergies Home Medications Medication Instructions Recorded Confirmed Type Acetaminophen [Tylenol Extra 1,000 mg PO DIRECTED PRN 09/01/21 04/29/22 History Strength] Apixaban [Eliquis] 5 mg PO BID 09/01/21 04/29/22 History Calcium Carbonate [Calcium] 600 mg PO DAILY 09/01/21 04/29/22 History Cyanocobalamin [Vitamin B-12] 1,000 mcg PO DAILY 09/01/21 04/29/22 History Diphenox-Atrop 2.5-0.025 mg 1 tab PO DIRECTED PRN 09/01/21 04/29/22 History [Lomotil] Iron 28 mg PO DAILY 09/01/21 04/29/22 History L.acidoph,Paracasei, B.lactis 1 each PO DAILY 09/01/21 04/29/22 History [Probiotic] Lipase/Protease/Amylase [Creon Dr 2 capsule PO BID-W/MEALS 09/01/21 04/29/22 History 24,000 Unit Capsule] Loperamide [Imodium] 2 mg PO DIRECTED PRN 09/01/21 04/29/22 History Magnesium Oxide [Mag-Ox] 400 mg PO TID 09/01/21 04/29/22 History Omeprazole 20 mg PO DAILY 09/01/21 04/29/22 History Calcium Acetate 667 mg PO DAILY 04/09/22 04/29/22 History Folic Acid 1 mg PO DAILY 04/09/22 04/29/22 History Gabapentin [Neurontin] 100 mg PO TID 04/09/22 04/29/22 History Metoprolol Succinate (ER) [Toprol 50 mg PO DAILY 04/09/22 04/29/22 History Xl] Sodium Bicarbonate 650 mg PO BID 04/09/22 04/29/22 History calcitrioL [Calcitriol] 0.5 mcg PO WEEKLY 04/09/22 04/29/22 History hydrALAZINE HCL [Apresoline] 50 mg PO TID 04/09/22 04/29/22 History Allergies Allergy/AdvReac Type Severity Reaction Status Date / Time No Known Allergies Allergy Verified 04/29/22 07:35 Surgical - Exam - General no distress - Eyes normal ocular movement - Neck trachea midline - Respiratory normal respiratory effort, clear to auscultation - Cardiovascular Rhythm: regular Heart Sounds: normal: S1, S2 - Abdomen Abdomen: soft, non tender, no guarding, no rigid, no rebound - Integumentary normal turgor - Neurologic no disoriented, no combative - Musculoskeletal normal gait, normal posture - Psychiatric oriented to time, oriented to person, oriented to place, speech is normal, memory intact Breast Exam: BRA: medium sports bra inspection: bilateral grade 2 ptosis Palpation: Right breast: Multiple positional exam fibrocystic changes no dominant masses or nodules of concern Right axilla: No adenopathy of concern Left breast: Multi-positional exam fibrocystic changes no dominant masses or nodules of concern Left axilla: No adenopathy of concern Results Mammogram reviewed with Dr. 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 The patient understands that secondary to her weight of 100 pounds but we can only use a limited amount of local anesthetic, therefore we may only be able to sample one of these areas today. The skull so include but are not limited to bleeding, infection, reaction to the anesthetic. She understands and wishes to proceed. CC: Dr. Hernandez
== END | disposition home or self-care (01) ==
LOC: WWCWWP 06:50
PROVIDERS: ATTEND Surgery
DX: Z53.9 Procedure and treatment not carried out, unspecified reason (principal)

== ENCOUNTER → 2022-04-29 | Day surgery (SDC) | payer MEDICARE ==
[2022-04-29 07:24] VITALS: RESP 16
[2022-04-29 10:10] VITALS: BP 138/78; PULSE 65; TEMP 98.1
--- NOTE | 2022-04-29 10:31 | P.PCN ---
Date of Procedure: 04/29/22 Preoperative Diagnosis: Stereotactic core biopsy 2 sites in the left breast upper outer quadrant region Postoperative Diagnosis: Same Procedure(s) Performed: Stereotactic core biopsy 2 sites left breast upper outer quadrant Anesthesia: local Surgeon: Frances Davenport Pathology: other (Breast tissue site in his posterior site microcalcifications of concern included, breast tissue site B was anterior site microcalcifications of concern noted and specimen) Condition: stable Disposition: same day Indications for Procedure: Microcalcifications of concern 2 sites left breast upper outer quadrant Operative Findings: Microcalcifications of concern noted and biopsy specimen for both sites Description of Procedure: The patient was seen and examined the procedure. Risk and benefits of the procedure were discussed with the patient risk include but were not limited to bleeding, infection, reaction to the anesthetic. The patient understood and wished to proceed. Alternatives such as watchful waiting or resection in the operating room before considered not recommended. The patient was brought to the stereotactic core biopsy room. She was positioned prone on the lo rad table. The posterior lesion was addressed initially. A medial to lateral approach was utilized. A reference librarian film was obtained. The lesion of concern was identified. The lesion was targeted. The breast was prepped using Betadine. A 9-gauge vacuum-assisted core rotating Petit biopsy needle was chosen. 12 mL of 1% lidocaine were used to anesthetize the area of concern. The needle was driven to the correct coordinates. The needle was fired. The needle was noted to be in the correct location on a post- fire film. 13 core biopsy specimens were obtained. Radiograph of the specimen revealed the calcifications of concern had been obtained. A tri barber clip was placed. The clip was noted to be in the correct location. The patient was repositioned. A lateral to medial approach was utilized for the anterior lesion. A reference librarian film was obtained. The lesion of concern was identified. The lesion was targeted. The breast was again prepped with Betadine. 12 mL of 1% lidocaine were used to anesthetize the area of concern. A 9-gauge vacuum-assisted core biopsy needle was driven to the correct coordinates. The needle was fired. Post fire film was obtained and the needle was slightly advanced with additional views of the needle to be in the correct location. 13 core biopsy specimens were obtained. Radiograph of the specimen revealed the calcifications of concern had been obtained. A secure barber clip was placed. The specimens are sent to pathology. The patient will follow-up with Dr. Russell in 1 week. The clip was noted to be in the correct location.
--- NOTE | 2022-04-29 15:08 | MM ---
Date of Procedure: 04/29/22 Preoperative Diagnosis: Stereotactic core biopsy 2 sites in the left breast upper outer quadrant region Postoperative Diagnosis: Same Procedure(s) Performed: Stereotactic core biopsy 2 sites left breast upper outer quadrant Anesthesia: local Surgeon: Frances Davenport Pathology: other (Breast tissue site in his posterior site microcalcifications of concern included, breast tissue site B was anterior site microcalcifications of concern noted and specimen) Condition: stable Disposition: same day Indications for Procedure: Microcalcifications of concern 2 sites left breast upper outer quadrant Operative Findings: Microcalcifications of concern noted and biopsy specimen for both sites Description of Procedure: The patient was seen and examined the procedure. Risk and benefits of the procedure were discussed with the patient risk include but were not limited to bleeding, infection, reaction to the anesthetic. The patient understood and wished to proceed. Alternatives such as watchful waiting or resection in the operating room before considered not recommended. The patient was brought to the stereotactic core biopsy room. She was positioned prone on the lo rad table. The posterior lesion was addressed initially. A medial to lateral approach was utilized. A athletic scout film was obtained. The lesion of concern was identified. The lesion was targeted. The breast was prepped using Betadine. A 9-gauge vacuum-assisted core rotating Petit biopsy needle was chosen. 12 mL of 1% lidocaine were used to anesthetize the area of concern. The needle was driven to the correct coordinates. The needle was fired. The needle was noted to be in the correct location on a post- fire film. 13 core biopsy specimens were obtained. Radiograph of the specimen revealed the calcifications of concern had been obtained. A tri barber clip was placed. The clip was noted to be in the correct location. The patient was repositioned. A lateral to medial approach was utilized for the anterior lesion. A athletic scout film was obtained. The lesion of concern was identified. The lesion was targeted. The breast was again prepped with Betadine. 12 mL of 1% lidocaine were used to anesthetize the area of concern. A 9-gauge vacuum-assisted core biopsy needle was driven to the correct coordinates. The needle was fired. Post fire film was obtained and the needle was slightly advanced with additional views of the needle to be in the correct location. 13 core biopsy specimens were obtained. Radiograph of the specimen revealed the calcifications of concern had been obtained. A secure barber clip was placed. The specimens are sent to pathology. The patient will follow-up with Dr. Russell in 1 week. The clip was noted to be in the correct location. Following the procedure a 2 view mammogram was obtained. The secure barber Top- Hat clip was visualized however the tri barber clip was not visualized. This was reviewed with radiology and a few residual calcifications were felt to be present at that site should be necessary to localize that site for resection in the operating room. Again the tri barber clip was not visualized which was the posterior site biopsy. The anterior site was marked with the secure barber Top- Hat clip and this was noted to be in the correct location. SHAZIA
== END ==
LOC: RADMAMWWP 06:51
PROVIDERS: ATTEND Surgery
DX: N60.82 Other benign mammary dysplasias of left breast (principal); R92.8 Other abnormal and inconclusive findings on diagnostic imaging of breast
CPT/HCPCS: 88305; 19081; 19082; A4648; J2001

== ENCOUNTER → 2022-05-11 | Outpatient (CLI) | payer MEDICARE | END | disposition home or self-care (01) | LOC: LABWHC1 09:47 | PROVIDERS: ATTEND Internal Medicine | DX: I10 Essential (primary) hypertension (principal) | CPT/HCPCS: 36415; 82024; 82533 ==

== ENCOUNTER → 2022-05-14 | Outpatient (CLI) | payer MEDICARE ==
[2022-05-14 11:04] VITALS: BP 128/75; PULSE 76; RESP 16; TEMP 98.1
--- NOTE | 2022-05-14 11:29 | P.PN ---
Subjective Progress Note Date: 05/14/22 Principal diagnosis: Fibrocystic breast changes Raine is a 66 year old white female status post left breast stero core biopsy on 04-29-22 of two sites. The pathology was benign concordant. LAD revealed fibroadenomatoid hyperplasia with calcifications and background fibro cystic changes at site 8, and fiber adenomatoid hyperplasia with calcifications and background fibrocystic changes including fibrosis and microcalcifications is site B. She tolerated the seizure without difficulty. Objective - Vital Signs Vital signs: Vital Signs Temp 98.1 F 05/14/22 11:01 Pulse 76 05/14/22 11:01 Resp 16 05/14/22 11:01 BP 128/75 05/14/22 11:01 Pulse Ox 96 05/14/22 11:01 FiO2 Intake & Output 05/13/22 05/14/22 05/14/22 18:59 06:59 18:59 Weight 45.359 kg - Constitutional General appearance: Present: cooperative - EENT Eyes: Present: EOMI ENT: Present: hearing grossly normal - Neck Neck: Present: normal ROM - Respiratory Respiratory: bilateral: CTA - Cardiovascular Heart sounds: normal: S1, S2 - Integumentary Integumentary Comment(s): Small hematoma at biopsy site no ecchymosis or infection Integumentary: Present: normal turgor - Musculoskeletal Musculoskeletal: Present: gait normal - Psychiatric Psychiatric: Present: A&O x's 3, appropriate affect, intact judgment & insight Assessment and Plan Assessment: Impression: Patient status post her tactic core biopsy 2 sites in the left breast. Benign concordant Plan: Repeat left breast mammogram in 6 months with physician exam at that time CC: DR. Hernandez
== END ==
LOC: WWCWWP 10:48
PROVIDERS: ATTEND Surgery
DX: N60.19 Diffuse cystic mastopathy of unspecified breast (principal)

== ENCOUNTER → 2022-07-14 | Outpatient (CLI) | payer MEDICARE ==
[2022-07-14 15:21] LABS: Appearance,Urine Clear (Clear); Bilirubin,Urine Negative (Negative); Blood,Urine Negative (Negative); Color,Urine Yellow; Glucose,Urine (UA) Negative (Negative); Hyaline Casts,Urine 3 /lpf (0-2); Ketones,Urine Negative (Negative); Leukocyte Esterase,Urine Small (Negative); Mucus,Urine Rare /hpf; Nitrite,Urine Negative (Negative); PH, Urine 5.5 (5.0-8.0); Protein,Urine Trace (Negative); RBC,Urine 4 /hpf (0-5); Specific Gravity,Urine 1.017 (1.001-1.035); Squamous Epithelial Cell,Urine 1 /hpf (0-4); Urobilinogen,Urine <2.0 mg/dL (<2.0); WBC,Urine 3 /hpf (0-5)
[2022-07-15 00:55] LABS: HCT 30.5 % (37.2-46.3); HGB 9.1 g/dL (12.0-15.0); MCH 30.4 pg (27.0-32.0); MCHC 29.8 g/dL (32.0-37.0); Mean Platelet Volume 9.3 fL (9.5-12.2); NRBC Per 100 WBC 0 /100 WBCS (0.0-0.0); Platelet Count 227 X 10*3/uL (140-440); RBC 2.99 X 10*6/uL (4.10-5.20); RDW 13.1 % (11.5-14.5); WBC 4.82 X 10*3/uL (4.50-10.00)
[2022-07-15 03:17] LABS: % Iron Saturation 27.98 (12.00-45.00); African American GFR (CKD) 28.8 (60.0-200.0); Albumin 4.1 g/dL (3.8-4.9); Albumin/Globulin Ratio 2.21 (1.60-3.17); Anion Gap 12.6 mmol/L (10.00-18.00); BUN/Creat Ratio 12.79 Ratio (12.00-20.00); Blood Urea Nitrogen 25.7 mg/dL (9.0-27.0); Calcium 8.8 mg/dL (8.7-10.3); Carbon Dioxide 21.7 mmol/L (20.0-27.5); Globulin 1.9 g/dL (1.6-3.3); Magnesium 1.9 mg/dL (1.5-2.4); Non-African American GFR(CKD) 24.9 (60.0-200.0); Phosphorus 3.9 mg/dL (2.4-5.1); Potassium 4.4 mmol/L (3.5-5.5); Total Bilirubin 0.2 mg/dL (0.30-1.20); Total Protein 5.9 g/dL (6.2-8.2); Uric Acid 6.3 mg/dL (2.9-7.7)
== END | disposition home or self-care (01) ==
LOC: LABWHC1 12:40
PROVIDERS: ATTEND Nurse Practitioner Family
DX: E55.9 Vitamin D deficiency, unspecified (principal); N39.0 Urinary tract infection, site not specified; N18.32 Chronic kidney disease, stage 3b; M10.9 Gout, unspecified; D63.1 Anemia in chronic kidney disease
CPT/HCPCS: 36415; 80053; 81001; 82043; 82306; 82570; 83540; 83550; 83735; 83970; 84100; 84550; 85027

== ENCOUNTER → 2022-08-18 | Outpatient (CLI) | payer MEDICARE ==
--- NOTE | 2022-08-18 15:09 | P.PAINPG ---
PQRS Measure Charge Sheet Comment: HISTORY OF PRESENT ILLNESS: 66 yr old female as a referral from Dr Batista presents today w severe and chronic LBP x 1 yr secondary to DDD, spondylosis and facet arthropathy without myelopathy for evaluation. Pt states pain level is at 8 /10 in intensity, constant, localized in the mid to lower lumbar spine, sharp, stabbing in character without shooting pain. Pain is provoked by lifting, bending, twisting, doing housework. Pain is alleviated by medications (Tyl), topicals, laying supine, heating pad use, repositioning and rest. No PT/ chiropractic treatments / massage therapy due to provoked pain. Pt states she suffered extensive weight loss due to renal injury s/p chemotherapy. PMH: OA, HTN, GERD, Iron Deficiency Anemia PSH: Tubal Ligation, Whipple Surgery SH: Hx of tobacco use, No ETOH abuse, No illicit drug use. Has 13 siblings. FH: Colon CA, Lung CA, Bone CA. All: NKDA Meds: See list REVIEW OF ORGAN SYSTEMS: CONSTITUTIONAL: No fevers or chills. No recent weight loss. NEUROLOGICAL: + numbness and tingling along the distal extremities. No seizure disorders or headaches. MUSCULOSKELETAL: + pain PSYCHIATRIC: Denies current depression or suicidal thoughts. Physical Examinations : Constitutional : Cooperative , not in acute distress . Neurologic : Cranial nerve II to XII intact. No focal neurological deficits. Psychiatric : alert & oriented x 3. Matching mood & appropriate affect. Judgment & insight intact. Musculoskeletal : Cervical Spine Motor strength in the deltoid and biceps: Normal right side. Normal Left side Motor strength biceps and the wrist extensors: Normal right side . Normal left side Motor strength in the triceps muscle: Normal right side. Normal left side Deep tendon reflexes: Normal at the biceps. Normal at Brachioradialis. Normal at triceps Vertebral body tenderness to deep palpation over Cervical facet loading test: positive bilaterally Spurling test: positive bilaterally Neck distraction test: positive bilaterally Yahaira sign: positive bilaterally Lumbar spine Motor strength lower extremities ,thigh and legs 5/5 Right side , 5/5 Left side Deep tendon reflexes : Normal Knee Jerk. Normal Ankle Jerk Vertebral body tenderness over Lumbar facet Loading Test: positive Right / positive Left Range of motion of the lumbar spine Flexion 30 degrees, extension 10 degrees Straight Leg Raise test: Left/ Right positive at degree Dayton test: positive right / positive left. Severe tenderness over the Sacroiliac joint on the Right / Left sides Gaenslen test: positive bilaterally Seated flexion test: positive bilaterally. Sacral spine : Severe tenderness over the Sacroiliac joint: right side / left side Range of motion: Flexion of the lumbar spine <60 degrees Range of motion: Extension of the lumbar spine <20 degrees Gaenslen's Test positive Conor's Test positive Dayton test: positive right side / left side Thigh Thrust Test Sacral Thrust Test Imaging: PET Scan reviewed Assessment/ Plan : Abdominal Pain secondary to Whipple Surgery due to Pancreatic CA Recommendation of Celiac Plexus Block. Risks, benefits of procedure discussed and patient verbalized understanding. Admits to aspirin or anti- coagulant use or medical history of diabetes. Protocol for discontinuation/ continuation of medications sophia procedure discussed. Medical clearance sought from Dr Garcia for Edwinaquis. All questions answered. I have spent greater than 30 minutes on patient care today. Dr Mireles was available by phone for the evaluation of this patient. The time was used to review the medical records including relevant urine studies and Prescription history (MAPs), review of the available imaging, evaluation and examination of the patient, coordination of care with the medical staff and if applicable r eferring physicians, as well as creation of the medical record PQRS Narrative: Smoking Status Never smoker Home Medications: Ambulatory Orders Acetaminophen [Tylenol Extra Strength] 1,000 mg PO DIRECTED PRN 09/01/21 Apixaban [Eliquis] 5 mg PO BID 09/01/21 Calcium Carbonate [Calcium] 600 mg PO DAILY 09/01/21 Cyanocobalamin [Vitamin B-12] 1,000 mcg PO DAILY 09/01/21 Diphenox-Atrop 2.5-0.025 mg [Lomotil] 1 tab PO DIRECTED PRN 09/01/21 Iron 28 mg PO DAILY 09/01/21 L.acidoph,Paracasei, B.lactis [Probiotic] 1 each PO DAILY 09/01/21 Lipase/Protease/Amylase [Henrietta Grajeda 24,000 Unit Capsule] 2 capsule PO BID-W/MEALS 09/01/21 Loperamide [Imodium] 2 mg PO DIRECTED PRN 09/01/21 Magnesium Oxide [Mag-Ox] 400 mg PO TID 09/01/21 Omeprazole 20 mg PO DAILY 09/01/21 Calcium Acetate 667 mg PO DAILY 04/09/22 Folic Acid 1 mg PO DAILY 04/09/22 Gabapentin [Neurontin] 100 mg PO TID 04/09/22 Metoprolol Succinate (ER) [Toprol Xl] 50 mg PO DAILY 04/09/22 Sodium Bicarbonate 650 mg PO BID 04/09/22 calcitrioL [Calcitriol] 0.5 mcg PO WEEKLY 04/09/22 hydrALAZINE HCL [Apresoline] 50 mg PO TID 04/09/22 Controlled Substance Measures - Controlled Substance Measures Is patient prescribed a controlled substance at discharge?: No
[2022-08-18 15:19] VITALS: BP 98/64; PULSE 58; RESP 18; TEMP 97.8
== END ==
LOC: PNWHC3 12:31
PROVIDERS: ATTEND Specialist
DX: R10.9 Unspecified abdominal pain (principal); M19.90 Unspecified osteoarthritis, unspecified site; I10 Essential (primary) hypertension; K21.9 Gastro-esophageal reflux disease without esophagitis; Z79.899 Other long term (current) drug therapy
CPT/HCPCS: 99211

== ENCOUNTER → 2022-10-13 | Outpatient (CLI) | payer MEDICARE ==
[2022-10-13 18:20] LABS: Basophils # (A) 0.06 X 10*3/uL (0.00-0.10); Basophils % (A) 1.3 %; Eosinophils # (A) 0.08 X 10*3/uL (0.04-0.35); Eosinophils % (A) 1.7 %; HCT 29.2 % (37.2-46.3); HGB 9.3 g/dL (12.0-15.0); Immature Grans, Automated 0.9 %; Lymphocytes # (A) 0.68 X 10*3/uL (0.90-5.00); Lymphocytes % (A) 14.6 %; MCH 31.7 pg (27.0-32.0); MCHC 31.8 g/dL (32.0-37.0); MCV 99.7 fL (80.0-97.0); Mean Platelet Volume 10.2 fL (9.5-12.2); Monocytes # (A) 0.17 X 10*3/uL (0.20-1.00); Monocytes % (A) 3.7 %; NRBC Per 100 WBC 0 /100 WBCS (0.0-0.0); Neutrophils # (A) 3.62 X 10*3/uL (1.80-7.70); Neutrophils % (A) 77.8 %; Platelet Count 181 X 10*3/uL (140-440); RBC 2.93 X 10*6/uL (4.10-5.20); RDW 15.1 % (11.5-14.5); WBC 4.65 X 10*3/uL (4.50-10.00)
[2022-10-13 19:17] LABS: African American GFR (CKD) 35.3 (60.0-200.0); Albumin 3.5 g/dL (3.8-4.9); Albumin/Globulin Ratio 1.94 (1.60-3.17); Anion Gap 12.6 mmol/L (10.00-18.00); BUN/Creat Ratio 15.76 Ratio (12.00-20.00); Blood Urea Nitrogen 26.8 mg/dL (9.0-27.0); Carbon Dioxide 23.4 mmol/L (20.0-27.5); Globulin 1.8 g/dL (1.6-3.3); Non-African American GFR(CKD) 30.5 (60.0-200.0); Phosphorus 3.5 mg/dL (2.4-5.1); Potassium 4.1 mmol/L (3.5-5.5); Total Bilirubin 0.7 mg/dL (0.30-1.20); Total Protein 5.3 g/dL (6.2-8.2); Uric Acid 6.7 mg/dL (2.9-7.7)
[2022-10-13 19:43] LABS: % Iron Saturation 57.53 (12.00-45.00)
[2022-10-14 01:12] LABS: Appearance,Urine Clear (Clear); Bilirubin,Urine Negative (Negative); Blood,Urine Negative (Negative); Color,Urine Yellow (Yellow); Ketones,Urine Negative (Negative); Nitrite,Urine Negative (Negative); Specific Gravity,Urine 1.016 (1.001-1.030); Urobilinogen,Urine 0.2 (0.2,1.0)
[2022-10-14 01:25] LABS: Bacteria,Urine Trace /HPF (None Seen)
== END | disposition home or self-care (01) ==
LOC: LABWHC1 13:15
PROVIDERS: ATTEND Internal Medicine
DX: E55.9 Vitamin D deficiency, unspecified (principal); N39.0 Urinary tract infection, site not specified; N25.81 Secondary hyperparathyroidism of renal origin; M10.9 Gout, unspecified; N18.32 Chronic kidney disease, stage 3b; D63.1 Anemia in chronic kidney disease
CPT/HCPCS: 36415; 80053; 81001; 82043; 82306; 82570; 83540; 83550; 83735; 83970; 84100; 84550; 85025

== ENCOUNTER → 2022-10-29 | Outpatient (CLI) | payer MEDICARE ==
[2022-10-29 19:25] LABS: African American GFR (CKD) 39.8 (60.0-200.0); Albumin 3.2 g/dL (3.8-4.9); Albumin/Globulin Ratio 2.08 (1.60-3.17); Anion Gap 12.4 mmol/L (10.00-18.00); BUN/Creat Ratio 9.94 Ratio (12.00-20.00); Blood Urea Nitrogen 15.3 mg/dL (9.0-27.0); Calcium 8.6 mg/dL (8.7-10.3); Carbon Dioxide 19.2 mmol/L (20.0-27.5); Globulin 1.6 g/dL (1.6-3.3); Non-African American GFR(CKD) 34.3 (60.0-200.0); Potassium 4.4 mmol/L (3.5-5.5); Total Protein 4.8 g/dL (6.2-8.2)
== END | disposition home or self-care (01) ==
LOC: LABWHC1 11:34
PROVIDERS: ATTEND Nurse Practitioner Family
DX: N18.32 Chronic kidney disease, stage 3b (principal)
CPT/HCPCS: 36415; 80053

== ENCOUNTER → 2022-11-01 | Outpatient (CLI) | payer MEDICARE ==
--- NOTE | 2022-11-01 14:43 | MM ---
Reason for Exam: Follow-up at short interval from prior study. Last screening mammogram was performed 8 month(s) ago. Patient History: Menarche at age 12. First Full-Term at age 18. Postmenopausal. Previous Hyperplasia w/o Atypia at age 66. Hormonal Contraceptives for 2 years until age 23. 04/29/2022, Benign MG stereo VAD BX addl LT on the left side. 04/29/2022, MG stereo VAD BX LT on the Left side. Risk Values: Shellie 5 year model risk: 2.1%. NCI Lifetime model risk: 6.8%. Prior Study Comparison: 03/12/2019 Bilateral Screening Mammogram, [facility]. 03/11/2022 Bilateral MG 3D screening mammo w/cad, [facility]. 03/30/2022 Left MG 3D work up w/cad LT, [facility]. Tissue Density: Left: The breast tissue is extremely dense which could obscure a lesion on mammography. Findings: Analyzed By CAD. Pattern appears stable. Benign vascular calcifications left breast. No significant changes are evident. Biopsy clip is within the left posterior breast. No suspicious groups of microcalcifications, spiculated or lobular masses, architectural distortion or other secondary signs of malignancy are mammographically apparent. Overall Assessment: Probably benign, BI-RAD 3 Management: Diagnostic Mammogram of both breasts in 6 months. A negative mammogram report should not preclude additional follow up of suspicious palpable abnormalities. Patient should continue monthly self breast exam. A clinical breast exam by your physician is recommended on an annual basis and results should be correlated with mammographic findings. Electronically signed and approved by: Ryan Ibrahim D.O. Radiologis
== END | disposition home or self-care (01) ==
LOC: RADMAMWWP 13:27
PROVIDERS: ATTEND Surgery
DX: R92.8 Other abnormal and inconclusive findings on diagnostic imaging of breast (principal); Z78.0 Asymptomatic menopausal state
CPT/HCPCS: 77065; G0279; 77061

== ENCOUNTER → 2022-11-01 | Outpatient (CLI) | payer MEDICARE ==
--- NOTE | 2022-11-01 13:12 | P.PN ---
Subjective Progress Note Date: 11/01/22 This is follow-up visit for this 66 years old female with a history of severe chronic abdominal pain, she was diagnosed with pancreatic cancer, previously we have done celiac plexus block and she reports she gets excellent pain relief of her abdominal pain, currently she is complaining of increased low back pain which she had before, patient reported that she had a previous history of chronic back pain, but currently reported that her back pain increases in intensity which is interfering with her quality of life, is constant knots radiated to the lower extremity, she denies any motor or sensory deficit in the lower extremity. Objective - Vital Signs Vital signs: Intake & Output 10/31/22 11/01/22 11/01/22 18:59 06:59 18:59 Weight 41.73 kg - Exam Physical Examinations : -Constitutiona : Cooperative , not in acute distress . -HEENT : nech : supple , no Lymphadenopathy , normal thyroid size . : eyes : no ptosis , no icterus, no photophobia . - neurologic : Cranial nerve II to XII intact , no focal neurological deffecit . -psychatric : alert , oriented X 3 , appropriate affect , intact judgment and insight . -Lymphatic : no Lymphadenopathy . - musculoskeltal : Lumber spine moter stegnth lower extremities ,thigh and legs 5/5 Right side , 5/5 Left side deep tendon reflexes : normal Knee Jerk , normal ankle Jerk lumber facet Loading Test =positive Right , positive Left Range of motion of the lumbar spine Flexion 30 degrees, extension 10 degrees strait leg raising test = negative bilaterally Fabere test= negative bilaterally tenderness over the Sacroiliac joint on the Right , and Left sides Assessment and Plan Plan: Assessment and plan=1-chronic abdominal pain secondary to pancreatic cancer pain improved after celiac plexus block. 2-chronic low back pain secondary to lumbar spondylosis with lumbar facet arthropathy. I will order MRI of the lumbar spine to evaluate the etiology patient will follow up in the pain clinic in 2 weeks Time with Patient: Less than 30
[2022-11-01 13:40] VITALS: BP 154/86; PULSE 72; RESP 18; TEMP 98
== END ==
LOC: PNWHC3 12:35
PROVIDERS: ATTEND Specialist
DX: M47.816 Spondylosis without myelopathy or radiculopathy, lumbar region (principal); G89.3 Neoplasm related pain (acute) (chronic); R10.9 Unspecified abdominal pain; C25.9 Malignant neoplasm of pancreas, unspecified
CPT/HCPCS: 99211

== ENCOUNTER → 2022-11-01 | Outpatient (CLI) | payer MEDICARE ==
--- NOTE | 2022-11-01 14:53 | XR ---
EXAM TYPE: LUMBAR SPINE X RAY SERIES COMPARISON: NONE HISTORY: Pain TECHNIQUE: 4 views are submitted. FINDINGS: Alignment is anatomic. The pedicles are intact. The transverse processes are intact. There is diff use osteopenia with multilevel degenerative disc disease most marked at L5-S1 with multilevel facet a rthropathy. Grade 1 anterolisthesis of L4 on L5. Vascular calcifications are noted. Surgical clips in the abdomen. IMPRESSION: 1. Diffuse osteopenia and multilevel degenerative disc disease most marked at L5-S1. Multilevel latasha inal encroachment results in suspected foraminal encroachment at multiple levels.
== END | disposition home or self-care (01) ==
LOC: RADXRMAIN 14:16
PROVIDERS: ATTEND Specialist
DX: M51.36 Other intervertebral disc degeneration, lumbar region (principal); M51.37 Other intervertebral disc degeneration, lumbosacral region
CPT/HCPCS: 72100

== ENCOUNTER → 2022-11-11 | Outpatient (CLI) | payer MEDICARE ==
[2022-11-11 08:52] VITALS: BP 137/77; PULSE 65; RESP 16; TEMP 97.8
--- NOTE | 2022-11-11 08:52 | P.PN ---
Subjective Progress Note Date: 11/11/22 Principal diagnosis: fibrocystic breast changes Raine is a 66-year-old white female seen in consultation for Dr. Hernandez regarding the mammographic abnormality in the left breast. She had a routine screening mammogram performed on after which additional views of the left breast were recommended. These were performed on 03/3022. Microcalcifications of concern were noted in the left breast in the upper outer quadrant. 2 clips were identified as reviewed by Dr. Ibrahim and recommended for stereotactic core biopsy. She does not feel any lumps masses or nodules of concern in either breast. This was a routine screening mammogram. She has not had any prior surgery on her breasts. She has not had any trauma or infection in her breast. The patient was diagnosed with pancreatic cancer in 2020, she had a whipple procedure at [place], she had chemotherapy. She did not have radiation therapy. She was told she was tumor free. It started in the bile duct. 11-11-22 She underwent a stero core biopsy of the left breast of two sites on 04-29-22 which were both benign concordant. She had a recent repeat left breast mammogram on 11-01-22 which was BIRADS 3. This was personally reviewed. She was recommended to undergo a repeat bilateral mammogram in April 2023. She is not complaining of any changes in her breast. She is on treatment for the pancreatic cancer, she is on chemotherapy. Caffeine: 1 cup coffee/day nicotine: stopped December 2019, used to smoke 1PPD for > 20 years; diagnosed with pancreatic cancer chocolate: weekly BCP: 2 years in her 20's Family History: 13 siblings brother: colon cancer sister: colon cancer brother: bone cancer mother: stomach cancer atient: pancreatic cancer patient had genetic testing and told (-) Hormonal History: menarche: 13 [id number], breast fed: no, age at first : 18 menopause: 48 hormones: none Surgeries: tubal Whipple Medical History: Last 2 PET scans a spot on L3L4 follows with Dr. Garcia kidney disease SociaL History: nicotine: stopped 2019 alcohol: none drugs: none - Constitutional Constitutional: Denies chills, Denies fever - EENT Eyes: denies blurred vision, denies pain Ears: deny: decreased hearing, tinnitus Ears, nose, mouth and throat: Denies headache, Denies sore throat - Breasts Breasts: bilateral: as per HPI - Cardiovascular Cardiovascular: Denies chest pain, Denies shortness of breath - Respiratory Comment: former smoker - Gastrointestinal Comment: bile duct cancer resected Gastrointestinal: Reports as per HPI - Genitourinary (Female) Genitourinary: Denies dysuria, Denies hematuria - Menstruation Menstruation: Reports postmenopausal - Musculoskeletal Musculoskeletal: Denies myalgias - Integumentary Integumentary: Denies pruritus, Denies rash - Neurological 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 Neurological: Reports numbness, Denies weakness - Psychiatric Psychiatric: Denies anxiety, Denies depression - Endocrine Endocrine: Denies fatigue, Denies weight change - Hematologic/Lymphatic Comment: eliquis from a superficial blood clot in the left groin, stopped on Tuesday - Allergic/Immunologic Allergic/Immunologic: Reports as per HPI Past Medical History Past Medical History: Cancer, GERD/Reflux, Hypertension Additional Past Medical History / Comment(s): PANCREATIC CANCER DIAGNOSED 09/2019, LAST CHEMO May., [facility] RIGHT CHEST, DVT LEFT LEG (DIAGNOSED AUG 2021)., HX OF DIVERTICULITIS., HX OF BLOOD TRANSFUSIONS (LAST MAY 2021)., DIARRHEA. History of Any Multi-Drug Resistant Organisms: None Reported Past Surgical History: Tubal Ligation Additional Past Surgical History / Comment(s): vein stripping., biliary duct stent ., [facility] RIGHT CHEST.,. WHIPPLE PROCEDURE(October 02, 2020) Past Anesthesia/Blood Transfusion Reactions: No Reported Reaction Past Psychological History: No Psychological Hx Reported Smoking Status: Former smoker Past Alcohol Use History: None Reported Additional Past Alcohol Use History / Comment(s): quit smoking December 2019, hx of 2 ppd. Past Drug Use History: None Reported - Past Family History Brother(s) Family Medical History: Cancer Additional Family Medical History / Comment(s): colon cancer Sister(s) Family Medical History: Cancer Additional Family Medical History / Comment(s): colon cancer Mother Family Medical History: Cancer Additional Family Medical History / Comment(s): stomach cancer Medications and Allergies Home Medications Medication Instructions Recorded Confirmed Type Acetaminophen [Tylenol Extra 1,000 mg PO DIRECTED PRN 09/01/21 04/29/22 History Strength] Apixaban [Eliquis] 5 mg PO BID 09/01/21 04/29/22 History Calcium Carbonate [Calcium] 600 mg PO DAILY 09/01/21 04/29/22 History Cyanocobalamin [Vitamin B-12] 1,000 mcg PO DAILY 09/01/21 04/29/22 History Diphenox-Atrop 2.5-0.025 mg 1 tab PO DIRECTED PRN 09/01/21 04/29/22 History [Lomotil] Iron 28 mg PO DAILY 09/01/21 04/29/22 History L.acidoph,Paracasei, B.lactis 1 each PO DAILY 09/01/21 04/29/22 History [Probiotic] Lipase/Protease/Amylase [Creon Dr 2 capsule PO BID-W/MEALS 09/01/21 04/29/22 History 24,000 Unit Capsule] Loperamide [Imodium] 2 mg PO DIRECTED PRN 09/01/21 04/29/22 History Magnesium Oxide [Mag-Ox] 400 mg PO TID 09/01/21 04/29/22 History Omeprazole 20 mg PO DAILY 09/01/21 04/29/22 History Calcium Acetate 667 mg PO DAILY 04/09/22 04/29/22 History Folic Acid 1 mg PO DAILY 04/09/22 04/29/22 History Gabapentin [Neurontin] 100 mg PO TID 04/09/22 04/29/22 History Metoprolol Succinate (ER) [Toprol 50 mg PO DAILY 04/09/22 04/29/22 History Xl] Sodium Bicarbonate 650 mg PO BID 04/09/22 04/29/22 History calcitrioL [Calcitriol] 0.5 mcg PO WEEKLY 04/09/22 04/29/22 History hydrALAZINE HCL [Apresoline] 50 mg PO TID 04/09/22 04/29/22 History Allergies Allergy/AdvReac Type Severity Reaction Status Date / Time No Known Allergies Allergy Verified 04/29/22 07:35 Objective - Constitutional General appearance: Present: cooperative - EENT Eyes: Present: EOMI ENT: Present: hearing grossly normal - Neck Neck: Present: normal ROM - Respiratory Respiratory: bilateral: CTA - Cardiovascular Rhythm: regular Heart sounds: normal: S1, S2 - Gastrointestinal Gastrointestinal Comment(s): ventral hernia General gastrointestinal: Present: soft - Integumentary Integumentary: Present: normal turgor - Musculoskeletal Musculoskeletal: Present: gait normal - Psychiatric Psychiatric: Present: A&O x's 3, appropriate affect, intact judgment & insight - Additional findings Additional findings: Breast Exam: BRA: medium sports bra inspection: bilateral grade 2 ptosis Palpation: Right breast: Multi positional exam fibrocystic changes no dominant masses or nodules of concern Right axilla: No adenopathy of concern Left breast: Multi-positional exam fibrocystic changes no dominant masses or nodules of concern Left axilla: No adenopathy of concern Assessment and Plan Assessment: Impression: recurrent pancreatic cancer on chemotherapy fibrocystic breast changes mammogram on 11-01-22 BIRAD 3 Plan: Repeat bilateral mammograms April 2023 Continue treatment pancreatic cancer Follow-up. Questions or concerns At this time there is nothing on examination of her breast which would warrant biopsy of the breast. CC: Dr. Hernanedz
== END ==
LOC: WWCWWP 08:37
PROVIDERS: ATTEND Surgery
DX: N60.11 Diffuse cystic mastopathy of right breast (principal); N60.12 Diffuse cystic mastopathy of left breast; I10 Essential (primary) hypertension; K21.9 Gastro-esophageal reflux disease without esophagitis; Z79.01 Long term (current) use of anticoagulants; Z80.0 Family history of malignant neoplasm of digestive organs; Z85.07 Personal history of malignant neoplasm of pancreas; Z86.718 Personal history of other venous thrombosis and embolism; Z87.891 Personal history of nicotine dependence; Z90.49 Acquired absence of other specified parts of digestive tract; C25.9 Malignant neoplasm of pancreas, unspecified

== ENCOUNTER → 2022-12-25 | Outpatient (CLI) | payer MEDICARE ==
--- NOTE | 2022-12-25 18:28 | MR ---
EXAMINATION TYPE: MR lumbar spine wo con DATE OF EXAM: 12/25/2022 3:49 PM COMPARISON: Radiograph 11/01/2022, 06/04/2020 CLINICAL INDICATION:Female, 67 years old with history of Low back pain TECHNIQUE: Multi planar, multi sequence imaging was performed utilizing: T1-weighted, T2-weighted, a nd turbo inversion recovery imaging of the lumbar spine. IV Contrast: None. FINDINGS: Alignment: The lumbar vertebral bodies have preserved heights and grade 1 anterolisthesis of L4 and L 5.. Cord: The conus medullaris and the distal spinal cord appear unremarkable with regards to their signa l intensity and morphology. Bones/Discs: Multilevel degeneration changes of the spine. There is diffuse low T1 signal which is he terogenous throughout the spine. No abnormal bony edema on inversion recovery sequences. Osteophyte f ormation worse in the lower lumbar spine and thoracic spine mild disc desiccation present. T12-L1: No evidence of significant spinal canal stenosis or neural foraminal stenosis. L1-L2: No evidence of significant spinal canal stenosis or neural foraminal stenosis. L2-L3: Disc bulge and facet joint arthropathy result in mild spinal canal and mild to moderate bilate ral neural foraminal stenosis. L3-L4: Disc bulge and facet joint arthropathy result in mild to moderate spinal canal and moderate to severe bilateral neural foraminal stenosis. L4-L5: Disc bulge and facet joint arthropathy result in moderate spinal canal and moderate to severe bilateral neural foraminal stenosis. L5-S1: The disc is rounded posterior morphology with moderate spinal canal stenosis. Facet joint arth ropathy with severe right and moderate to severe left neural foraminal stenosis. T12-L1 at least mild to moderate spinal canal stenosis. T11-T12 at least mild spinal canal stenosis s econdary to facet joint arthropathy with moderate to severe bilateral neural foraminal stenosis. Other findings: None. IMPRESSION: 1. No definitive evidence of disc herniation or significant spinal canal stenosis. 2. Moderate to severe disc degeneration with associated osteoarthritic changes worse at L5-S1 with s evere right and moderate severe left neural foraminal stenosis and moderate spinal canal stenosis. Th ere is also moderate spinal canal stenosis L4-L5. 3. Heterogenous and low signal on T1-weighted imaging appearance of the bone marrow, correlate for re d marrow reconversion. 4. Grade 1 anterolisthesis of. L4 on L5/ 5. Partially evaluated T11-T12 and T12-L1 levels on sagittal only suggest at least mild to moderate s geovanna canal stenosis secondary to facet joint arthropathy. Additional T11-T12 moderate to severe neur al foraminal stenosis bilaterally.
== END | disposition home or self-care (01) ==
LOC: RADMRIMAIN 13:53
PROVIDERS: ATTEND Specialist
DX: M51.37 Other intervertebral disc degeneration, lumbosacral region (principal); M47.816 Spondylosis without myelopathy or radiculopathy, lumbar region; M99.73 Connective tissue and disc stenosis of intervertebral foramina of lumbar region; M43.16 Spondylolisthesis, lumbar region; M99.72 Connective tissue and disc stenosis of intervertebral foramina of thoracic region
CPT/HCPCS: 72148

== ENCOUNTER → 2023-01-19 | Outpatient (CLI) | payer MEDICARE ==
[2023-01-19 12:48] VITALS: BP 138/81; PULSE 70; RESP 18; TEMP 98.6
--- NOTE | 2023-01-19 13:31 | P.PAINPG ---
PQRS Measure Charge Sheet Comment: A 67 yr old female with a history of severe and chronic LBP secondary to lumbar DDD and spondylosis with facet arthropathy without myelopathy presents today for MRI lumbar spine results. Pain level is provoked at 9 /10 in intensity, constant, localized in the lumbar spine, achy in character without shooting pain. Pain is provoked by upright positions for extended periods of time. Pain is alleviated by medications (Tyl), topicals, laying supine, heating pad use, repositioning and rest. No PT/ chiropractic treatments / massage therapy due to provoked pain. Pt states she suffered extensive weight loss due to renal injury s/p chemotherapy. Interventional pain procedures completed include Celiac Plexus Block Patient is currently on Tyl Patient denies any side effects of the medication(s), denies excessive drowsiness or sleepiness, denies suicidal ideation and reports that the current pain medication is helping to control the pain and improve activities of daily living. Patient denies any motor or sensory deficits. Patient denies any fever or night sweats, denies any change in the bowel movements or urination. Physical Examination: -Constitutional: Cooperative. Not in acute distress . - Neurologic: Cranial nerve II to XII intact. No focal neurological deficits. - Psychatric: Alert & oriented x 3. Matching mood & appropriate affect. Judgment and insight intact. - Musculoskeletal: Cervical spine: Muscle bulk/ tone/ strength in the bilateral upper extremities normal Vertebral body tenderness to palpation over Spurling test positive Distraction test positive Facet loading test positive TTP Thoracic spine Muscle bulk / tone/ strength in the bilateral paraspinal muscles normal Vertebral body tender to palpation over L3 Mcmahon Test positive Facet loading test positive TTP Lumbar spine: Motor bulk/ tone/ strength lower extremities , thigh and legs : 5/5 Deep tendon reflexes : Normal Knee Jerk. Normal Ankle Jerk . Vertebral body tenderness to palpation over Mcmahon Test positive Lumbar Facet Loading Test positive Straight Leg Raise: positive at 30 degrees right side/ left side Gaenslen's Test positive Sacral spine : Severe tenderness over the Sacroiliac joint: right side / left side Range of motion: Flexion of the lumbar spine <60 degrees Range of motion: Extension of the lumbar spine <20 degrees Gaenslen's Test positive right side / left side Dayton test: positive right side / left side Thigh Thrust Test positive right side / left side Sacral Thrust Test positive right side / left side Imaging: MRI non contrast of the lumbar spine from 12/25/22 reviewed Assessment and plan: Chronic LBP secondary to lumbar DDD, spondylosis with facet arthropathy without myelopathy Recommendation of EMMY L2-L3 #1. May need a series of injections for optimal pain relief. Risks, benefits of procedure discussed and pt verbalized understanding. Admits to anticoagulant use or medical history of diabetes. Protocol for discontinuation/ continuation of medications sophia procedure discussed. Minimal anesthesia provided, if clinically indicated, consisting of Versed and Fentanyl. All questions answered. I have spent less than 30 minutes on patient care today. Dr Mireles was available by phone for the evaluation of this patient. The time was used to review the medical records including relevant urine studies and Prescription history (MAPs), review of the available imaging, evaluation and examination of the patient, coordination of care with the medical staff and if applicable referring physicians, as well as creation of the medical record PQRS Narrative: Smoking Status Never smoker Home Medications: Ambulatory Orders Acetaminophen [Tylenol Extra Strength] 1,000 mg PO DIRECTED PRN 09/01/21 Apixaban [Eliquis] 5 mg PO BID 09/01/21 Calcium Carbonate [Calcium] 600 mg PO DAILY 09/01/21 Cyanocobalamin [Vitamin B-12] 1,000 mcg PO DAILY 09/01/21 Diphenox-Atrop 2.5-0.025 mg [Lomotil] 1 tab PO DIRECTED PRN 09/01/21 Iron 28 mg PO DAILY 09/01/21 L.acidoph,Paracasei, B.lactis [Probiotic] 1 each PO DAILY 09/01/21 Lipase/Protease/Amylase [Henrietta Grajeda 24,000 Unit Capsule] 2 capsule PO TID-W/MEALS 09/01/21 Loperamide [Imodium] 2 mg PO DIRECTED PRN 09/01/21 Magnesium Oxide [Mag-Ox] 400 mg PO DAILY 09/01/21 Omeprazole 20 mg PO DAILY 09/01/21 Calcium Acetate 667 mg PO DAILY 04/09/22 Folic Acid 1 mg PO DAILY 04/09/22 Gabapentin [Neurontin] 100 mg PO TID 04/09/22 Metoprolol Succinate (ER) [Toprol Xl] 25 mg PO DAILY 04/09/22 Sodium Bicarbonate 650 mg PO BID 04/09/22 calcitrioL [Calcitriol] 0.5 mcg PO WEEKLY 09/09/22 Controlled Substance Measures - Controlled Substance Measures Is patient prescribed a controlled substance at discharge?: No
== END ==
LOC: PNWHC3 12:16
PROVIDERS: ATTEND Specialist
DX: M51.36 Other intervertebral disc degeneration, lumbar region (principal); M47.816 Spondylosis without myelopathy or radiculopathy, lumbar region; G89.29 Other chronic pain
CPT/HCPCS: 99211

== ENCOUNTER → 2023-03-31 | Outpatient (CLI) | payer MEDICARE ==
[2023-03-31 12:59] VITALS: BP 120/74; PULSE 61; RESP 16; TEMP 97.5
--- NOTE | 2023-03-31 14:53 | P.PAINPG ---
PQRS Measure Charge Sheet Comment: A 67 yr old female with a history of severe and chronic LBP secondary to lumbar DDD and spondylosis with facet arthropathy without myelopathy presents today for EMMY L2-L3 #1. Pt states she experienced 90 % pain relief x 3 wks s/p procedure. Pain level is provoked at 8 /10 in intensity, constant, localized in the lumbar spine, achy in character without shooting pain. Pain is provoked by upright positions for extended periods of time. Pain is alleviated by medications, topicals, laying supine, heating pad use, repositioning and rest. No PT/ chiropractic treatments / massage therapy due to provoked pain. Pt states she suffered extensive weight loss due to renal injury s/p chemotherapy. Oswestry axial pain score of 27. Interventional pain procedures completed include Celiac Plexus Block, EMMY L2-L3 x1 Patient is currently on Tyl Patient denies any side effects of the medication(s), denies excessive drowsiness or sleepiness, denies suicidal ideation and reports that the current pain medication is helping to control the pain and improve activities of daily living. Patient denies any motor or sensory deficits. Patient denies any fever or night sweats, denies any change in the bowel movements or urination. Physical Examination: -Constitutional: Cooperative. Not in acute distress . - Neurologic: Cranial nerve II to XII intact. No focal neurological deficits. - Psychatric: Alert & oriented x 3. Matching mood & appropriate affect. Judgment and insight intact. - Musculoskeletal: Cervical spine: Muscle bulk/ tone/ strength in the bilateral upper extremities normal Vertebral body tenderness to palpation over Spurling test positive Distraction test positive Facet loading test positive TTP Thoracic spine Muscle bulk / tone/ strength in the bilateral paraspinal muscles normal Vertebral body tender to palpation over L3 Mcmahon Test positive Facet loading test positive TTP Lumbar spine: Motor bulk/ tone/ strength lower extremities , thigh and legs : 5/5 Deep tendon reflexes : Normal Knee Jerk. Normal Ankle Jerk . Vertebral body tenderness to palpation over Mcmahon Test positive Lumbar Facet Loading Test positive Straight Leg Raise: positive at 30 degrees right side/ left side Gaenslen's Test positive Sacral spine : Severe tenderness over the Sacroiliac joint: right side / left side Range of motion: Flexion of the lumbar spine <60 degrees Range of motion: Extension of the lumbar spine <20 degrees Gaenslen's Test positive right side / left side Dayton test: positive right side / left side Thigh Thrust Test positive right side / left side Sacral Thrust Test positive right side / left side Imaging: MRI non contrast of the lumbar spine from 12/25/22 reviewed Assessment and plan: Chronic LBP secondary to lumbar DDD, spondylosis with facet arthropathy without myelopathy Recommendation of EMMY L2-L3 #2. May need a series of injections for optimal pain relief. Risks, benefits of procedure discussed and pt verbalized understanding. Admits to anticoagulant use or medical history of diabetes. Protocol for discontinuation/ continuation of medications sophia procedure discussed. Minimal anesthesia provided, if clinically indicated, consisting of Versed and Fentanyl. All questions answered. I have spent less than 30 minutes on patient care today. Dr Mireles was available by phone for the evaluation of this patient. The time was used to review the medical records including relevant urine studies and Prescription history (MAPs), review of the available imaging, evaluation and examination of the patient, coordination of care with the medical staff and if applicable referring physicians, as well as creation of the medical record PQRS Narrative: Smoking Status Never smoker Home Medications: Ambulatory Orders Acetaminophen [Tylenol Extra Strength] 1,000 mg PO DIRECTED PRN 09/01/21 Apixaban [Eliquis] 5 mg PO BID 09/01/21 Calcium Carbonate [Calcium] 600 mg PO DAILY 09/01/21 Diphenox-Atrop 2.5-0.025 mg [Lomotil] 1 tab PO DIRECTED PRN 09/01/21 Iron 28 mg PO DAILY 09/01/21 L.acidoph,Paracasei, B.lactis [Probiotic] 1 each PO DAILY 09/01/21 Lipase/Protease/Amylase [Henrietta Grajeda 24,000 Unit Capsule] 2 capsule PO TID-W/MEALS 09/01/21 Loperamide [Imodium] 2 mg PO DIRECTED PRN 09/01/21 Magnesium Oxide [Mag-Ox] 400 mg PO DAILY 09/01/21 Omeprazole 20 mg PO DAILY 09/01/21 Folic Acid 1 mg PO DAILY 04/09/22 Gabapentin [Neurontin] 300 mg PO BID 04/09/22 Sodium Bicarbonate 650 mg PO BID 04/09/22 calcitrioL [Calcitriol] 0.5 mcg PO WEEKLY 04/09/22 Controlled Substance Measures - Controlled Substance Measures Is patient prescribed a controlled substance at discharge?: No
== END ==
LOC: PNWHC3 12:16
PROVIDERS: ATTEND Specialist
DX: M54.50 Low back pain, unspecified (principal)
CPT/HCPCS: 99211